=== PATIENT | male | born 1960 | race Caucasian/White ===

== ENCOUNTER 2020-03-31 00:46 | Outpatient (CLI) | payer OTHER, SELFPAY ==
[2020-03-31 18:47] LABS: SARS-CoV-2 RNA PCR Negative
== END 2020-03-31 00:47 | disposition home or self-care (01) ==
LOC: ANHCOVIDDT 00:47
PROVIDERS: PCP Family Medicine Adolescent Medicine; Visit Provider Internal Medicine Cardiovascular Disease
DX: Z01.812 Encounter for preprocedural laboratory examination (principal); Z20.822 Contact with and (suspected) exposure to COVID-19
CPT/HCPCS: C9803; U0003; U0005

== ENCOUNTER 2020-04-04 02:18 | Day surgery (SDC) | payer OTHER, SELFPAY ==
[2020-04-03 13:14] VITALS: BMI 36.9
[2020-04-04 07:33] VITALS: BP 154/86; PULSE 60; RESP 14; TEMP 36.3; O2SAT 100; BMI 36.9
[2020-04-04 07:48] LABS: Hematocrit 48.3 % (42.0-52.0); Mean Corpuscular HGB Conc 33.1 g/dl (32-36); Mean Corpuscular Volume 90.4 fl (80-100); Mean Platelet Volume 10.7 fl (7.4-10.4); Platelet Count Result 173 k/mm3 (150-375); Red Blood Count 5.34 M/mm3 (4.6-6.20); Red Cell Distribution Width 12.8 % (11.5-14.5); White Blood Count 8.1 K/mm3 (4.5-10.0)
[2020-04-04 07:55] LABS: INR 0.9; Prothrombin Time 12.2 Seconds (11.1-14.7)
[2020-04-04 07:57] LABS: Anion Gap 6 mmol/L (8-16); Blood Urea Nitrogen 19 mg/dL (9-20); Calcium 9.4 mg/dL (8.4-10.2); Carbon Dioxide 27 mmol/L (22-30); Chloride 106 mmol/L (98-107); Estimated CRCL calculation 86 ml/min; Estimated Glomerular Filt Rate > 60; Glucose 117 mg/dL (75-110); Potassium 4.2 mmol/L (3.4-5.0); Sodium 139 mmol/L (137-145)
--- NOTE | 2020-04-04 08:32 | PM.IMHP ---
H&P: HPI History of Present Illness Date/Time: 04/04/20 08:32 Chief Complaint: Pacemaker at DARIO Narrative: Escobar Vasquez is a 59 year old male with a history of Biotronik pacemaker in (done out of town) for sick sinus syndrome and paroxysmal atrial fibrillation whose pacemaker has reached DARIO. He is here for generator change. The patient is feeling well today with no fevers. He has been NPO. Pacemaker check in February showed that he had reached DARIO. He has an underlying rhythm, rate 40-50 beats per minute. His leads look good. No recent AFib has been noted. He also has a history of hypertension and PVCs. Review of Systems Constitutional: Constitutional: Denies body ache(s), Denies chills and Denies weakness Eyes: Eyes: Reports no additional eye complaints ENT: Denies epistaxis Cardiovascular: Cardiovascular: Denies chest pain, Denies pedal edema and Denies palpitations Respiratory: Respiratory: Denies cough and Denies dyspnea Gastrointestinal: Gastrointestinal: Denies abdominal pain Genitourinary: Genitourinary: Denies dysuria Musculoskeletal: Musculoskeletal: Reports no additional musculoskeletal complaints Integumentary/Breasts: Skin/Breast: Denies rash Neurologic: Reports system reviewed and no additional complaints, except as documented Psychiatric: Psychiatric: Reports no additional psychiatric complaints [facility] Past Medical History Medical History (Updated 04/04/20 @ 08:37 by Xochitl Be MD) Aortic insufficiency Hypertension Pacemaker Biotronik pacemaker placed in 2007 for sick sinus syndrome. 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 Smoking status: Never smoker Second hand tobacco smoke exposure: No Alcohol intake: current Drinks per week: 2 Substance use: never Living arrangements: with family Gender identity (if verbalized by the patient): Male Spiritual care concerns: No Meds Home Medications and Allergies Home Medications Medication Instructions Recorded Confirmed Type aspirin 325 mg PO DAILY 04/03/20 04/03/20 History flecainide 150 mg PO BID 04/03/20 04/03/20 History magnesium 250 mg PO DAILY 04/03/20 04/03/20 History metoprolol succinate 100 mg PO DAILY 04/03/20 04/03/20 History multivitamin [A To Z Multivitamin] 1 tablet PO DAILY 04/03/20 04/03/20 History simvastatin 20 mg PO DAILY 04/03/20 04/03/20 History Allergies Allergy/AdvReac Type Severity Reaction Status Date / Time propafenone Allergy Severe HIVES Verified 10/11/19 13:22 Vital Signs Vital Signs - 24 hr 04/04/20 07:33 Temperature 97.3 F L Pulse Rate 60 Respiratory Rate 14 Blood Pressure 154/86 H Pulse Oximetry 100 Exam Narrative: Exam Narrative: Pleasant middle-aged male in no distress Const: General: comfortable and no acute distress HENMT: General nose exam: no epistaxis Mouth: Yes moist mucous membranes Eyes: EOM: EOMs intact bilaterally Neck: Neck: supple Resp: Effort & Inspection: normal respiratory effort Auscultation: clear to auscultation bilaterally Cardio: Rate: regular rate Rhythm: regular rhythm Heart sounds: no murmurs GI: Inspection: non-distended GI Palp: Yes Soft to palpation, No Firmness to palpation present (GI) and No Tenderness to palpation present (GI) Skin: General skin exam: normal color Other: Pacemaker incision is well-healed Neuro: Cognition (Neuro): normal cognition Speech: normal speech Motor exam (neuro): Normal motor muscle tone present throughout Extrem: General: no edema Psych: Mental Status: mental status grossly normal Affect: normal affect H&P: Results Labs Labs: Short CBC 04/04/20 Range/Units 07:39 WBC 8.1 (4.5-10.0) K/mm3 Hgb 16.0 (14.0-18.0) g/dL Hct 48.3 (42.0-52.0) % Plt Count 173 (150-
--- NOTE | 2020-04-04 08:40 | P.SEDATION_ITS ---
Moderate Sedation Note-Pt Data Patient Data Diagnosis: Pacemaker at DARIO Present Complaint: Pacemaker at DARIO Procedure to be performed/Plan: Conscious sedation Generator change Allergies Allergy/AdvReac Type Severity Reaction Status Date / Time propafenone Allergy Severe HIVES Verified 10/11/19 13:22 Home Medications Medication Instructions Recorded Confirmed Type aspirin 325 mg PO DAILY 04/03/20 04/03/20 History flecainide 150 mg PO BID 04/03/20 04/03/20 History magnesium 250 mg PO DAILY 04/03/20 04/03/20 History metoprolol succinate 100 mg PO DAILY 04/03/20 04/03/20 History multivitamin [A To Z Multivitamin] 1 tablet PO DAILY 04/03/20 04/03/20 History simvastatin 20 mg PO DAILY 04/03/20 04/03/20 History Sedation/Anesthesia: No previous sedation/anesthesia problems (including family history). [facility] Past Medical History Medical History Aortic insufficiency Hypertension Pacemaker Biotronik pacemaker placed in 2007 for sick sinus syndrome. 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 Smoking status: Never smoker Second hand tobacco smoke exposure: No Alcohol intake: current Drinks per week: 2 Substance use: never Living arrangements: with family Gender identity (if verbalized by the patient): Male Spiritual care concerns: No Mod Sed Physical Exam Physical Exam Pre Procedural Exam: Normal: Appearance, Eyes, Ears, Nose, Neck, Throat, Airway, Lungs, Heart Size, Heart Rate, Heart Rhythm, Neuro Exam, Abdomen, Extremities and Skin (Pacemaker incision well-healed) Hours since solid foods: 12 Hours since liquid intake: 12 Internal Medicine - PN: Obj Da Vital Signs Vital Signs: Vital Signs - 24 hr 04/04/20 07:33 Temperature 97.3 F L Pulse Rate 60 Respiratory Rate 14 Blood Pressure 154/86 H Pulse Oximetry 100 Labs CBC & Chem 7: 04/04/20 07:39 04/04/20 07:39 Labs: Laboratory Results - last 24 hr 04/04/20 04/04/20 04/04/20 07:39 07:39 07:39 WBC 8.1 RBC 5.34 Hgb 16.0 Hct 48.3 MCV 90.4 MCH 30.0 MCHC 33.1 RDW 12.8 Plt Count 173 MPV 10.7 H PT 12.2 INR 0.9 Sodium 139 Potassium 4.2 Chloride 106 Carbon Dioxide 27 Anion Gap 6 L BUN 19 Creatinine 1.20 Estim Creat Clear Calc 86 Estimated GFR > 60 Glucose 117 H Calcium 9.4 ASA Classification/Sedation ASA Classification/Sedation ASA Class: II Risks: Risks, benefits and alternatives explained and patient/family accepted p cecy for sedation. Patient re-evaluated immediately prior to sedation.
--- NOTE | 2020-04-04 10:09 | P.OP_ITS ---
Procedure Note - Detailed Date of procedure: 04/04/20 Pre-op diagnosis: DARIO Post-op diagnosis: same Procedure performed: Conscious sedation Generator change Description of procedure: PROCEDURE: Conscious sedation Generator change, dual-chamber pacemaker UNDERLYING RHYTHM: Sinus bradycardia CONSCIOUS SEDATION: Assessment: The patient has no history of anesthesia problems. The oropharynx is clear. The patient was deemed to be a good candidate for conscious sedation. The patient had continuous hemodynamic and oximetric monitoring during the procedure. Start time: 911 Completion time: 100 Total conscious sedation time: 54 minutes Medications: Versed 4 mg, fentanyl 100 mcg IV push Trained observer: Katharine Del Toro RN Outcome: The patient tolerated the procedure well with no complications. PROCEDURE: After informed consent, the patient is brought to the dairy laboratory technician and the left prepectoral area was prepped and draped in usual fashion. The patient was given a prophylactic antibiotic with Ancef intravenously. After conscious sedation as described above, the area was anesthetized with 1% lidocaine. A skin incision is made with the Plasma Blade and carried down to the pacing capsule which was also incised. Hemostasis is obtained using the Plasma Blade. The lead/s was/were freed from the underlying capsule and inspected and were found to be intact. The pulse generator was delivered from the pocket. The lead/s was/were disconnected from the existing device and reconnected to the new device. A gentle tug could not remove it/them. The device and lead/s was/were interrogated and found to be functioning appropriately. The area was copiously irrigated with antibiotic-containing solution. The device was replaced in the pocket. The subcutaneous tissues were closed in a two-layer fashion with interrupted 2 0 Vicryl sutures and the skin was closed in a continuous fashion using 4 0 Vicryl. The area was cleansed, an Aquacel dressing applied. because the patient had some minor oozing, a pressure dressing was also applied. The patient tolerated the procedure well with no complications. Estimated blood loss was negligible. DEVICE INFORMATION: New pulse generator: Research for [employer] MRI DR Model L111, Serial # [id number] Existing right atrial lead: Guidant model 4480, serial# [id number] Existing right ventricular lead: Guidant model 4457, serial # [id number] Explanted generator: Guidant model 1291, serial [id number] THRESHOLD INFORMATION: Atrrial lead: P-wave sensing 3.7 mV, impedance 420 Ohms, threshold 0.4 volts at 0.4 milliseconds Ventricular lead: R-wave sensing 8.8 mV, impedance 452 Ohms, threshold 1.1 volts at 0.4 milliseconds PROGRAMMED PARAMETERS: DDDR 60/130 Reprogrammed to reduce ventricular pacing: PAVD 220/350 msec, AV search to 400msec SAVD 220/350 msec Surgeon: Xochitl Be MD
--- NOTE | 2020-04-04 10:12 | PM.OP ---
Procedure Note - Brief Procedure Note - Brief Date of procedure: 04/04/20 Pre-op diagnosis: DARIO Post-op diagnosis: same Procedure performed: conscious sedation Generator change Description of procedure: uneventful generator change of a [employer] dual-chamber pacemaker Implants: [employer] MRI DR Pacemaker Model L111, Serial number [id number] Anesthesia: local and other ( conscious sedation) Surgeon: Xochitl Be MD Drains: No Packing: No Pathology: none sent Complications: No immediate complications Condition: stable Disposition: same day Findings: unremarkable generator change
[2020-04-04 10:27] VITALS: BP 136/80; PULSE 60; RESP 14; O2SAT 95
[2020-04-04 10:45] VITALS: BP 133/83; PULSE 60; RESP 14; O2SAT 96
[2020-04-04 10:58] VITALS: BP 139/82; PULSE 60; RESP 14; O2SAT 97
[2020-04-04 11:15] VITALS: BP 139/73; PULSE 60; RESP 14; O2SAT 97
[2020-04-04 11:30] VITALS: BP 128/78; PULSE 60; RESP 14; O2SAT 97
--- NOTE | 2020-04-04 11:41 | SUR.PHASEII ---
ALL D/C INSTRUCTIONS REVIEWED WITH PATIENT, VERBALIZED UNDERSTANDING. NO QUESTIONS AT THIS TIME.
== END 2020-04-04 11:55 | disposition home or self-care (01) ==
PROVIDERS: PCP Family Medicine Adolescent Medicine; Visit Provider Internal Medicine Cardiovascular Disease
PROC: 0JPT0PZ Removal of Cardiac Rhythm Related Device from Trunk Subcutaneous Tissue and Fascia, Open Approach (ICD-10-PCS; CPT 33228; 2020-04-04 08:30)
DX: Z45.010 Encounter for checking and testing of cardiac pacemaker pulse generator [battery] (principal); I48.0 Paroxysmal atrial fibrillation; I10 Essential (primary) hypertension; I49.3 Ventricular premature depolarization; I35.1 Nonrheumatic aortic (valve) insufficiency; Z79.82 Long term (current) use of aspirin
CPT/HCPCS: 33228; 36415; 80048; 85027; 85610; C1785; C9803; J0690; J2250; J3010; J7040; U0003; U0005

== ENCOUNTER → 2022-08-29 14:17 | Outpatient (CLI) | payer OTHER, SELFPAY ==
--- NOTE | ~2022-08-29 | XR_ITS ---
XR hip LT min 2V 08/29/2022 14:32 Indication: Left hip pain Procedure: 2 views left hip Comparison: No prior studies for comparison. Findings: There is moderate osteoarthritis of the left hip. No fracture, subluxation or dislocation. No soft tissue abnormality. No foreign bodies. Impression: 1: Moderate osteoarthritis of the left hip. Reviewed, dictated and finalized at location [] Impression: 1: Moderate osteoarthritis of the left hip.
== END ==
PROVIDERS: PCP Family Medicine Adolescent Medicine; Visit Provider Family Medicine Adolescent Medicine
DX: M16.12 Unilateral primary osteoarthritis, left hip (principal)
CPT/HCPCS: 73502

== ENCOUNTER 2023-01-22 09:52 | Outpatient (CLI) | payer OTHER, SELFPAY ==
[2023-01-22 11:46] LABS: Basophils Absolute Auto 0.1 K/mm3 (0.0-0.1); Basophils Percent Auto 0.7 % (0.2-1.2); Eosinophils Absolute Auto 0.2 K/mm3 (0-0.3); Eosinophils Percent Auto 2.8 % (0-4.4); Hemoglobin 15.4 g/dL (14.0-18.0); Immature Granulocyte Absolute 0.03 K/mm3 (0.00-0.031); Immature Granulocyte Percent A 0.4 % (0-0.5); Lymphocytes Absolute Auto 2.67 K/mm3 (0.9-3.2); Lymphocytes Percent Auto 32.8 % (18.3-44.2); Mean Corpuscular HGB Conc 32.8 g/dl (32-36); Mean Corpuscular Hemoglobin 30.1 pg (26-34); Mean Corpuscular Volume 91.8 fl (80-100); Mean Platelet Volume 10.7 fl (7.4-10.4); Monocytes Absolute Auto 0.6 K/mm3 (0.1-0.6); Monocytes Percent Auto 7.5 % (2.6-8.5); Neutrophils Absolute Auto 4.6 K/mm3 (1.3-6.7); Neutrophils Percent Auto 55.8 % (45.5-73.1); Platelet Count Result 206 k/mm3 (150-375); Red Blood Count 5.12 M/mm3 (4.6-6.20); Red Cell Distribution Width 12.7 % (11.5-14.5); White Blood Count 8.2 K/mm3 (4.5-10.0)
[2023-01-22 11:55] LABS: Albumin Level 4.9 g/dL (3.5-5.1); Anion Gap 10 mmol/L (8-16); Blood Urea Nitrogen 26 mg/dL (9-20); Calcium 9.9 mg/dL (8.4-10.2); Carbon Dioxide 27 mmol/L (22-30); Chloride 104 mmol/L (98-107); Estimated Glomerular Filt Rate 51; Glucose 89 mg/dL (65-110); Hemoglobin A1C 5.5 % (<5.7); Potassium 4.8 mmol/L (3.4-5.0); Sodium 141 mmol/L (137-145)
[2023-01-22 11:58] LABS: Urine Cotinine NEGATIVE
== END 2023-01-22 09:53 | disposition home or self-care (01) ==
LOC: ANHSURGERY 09:56
PROVIDERS: PCP Family Medicine Adolescent Medicine; Visit Provider Orthopaedic Surgery
DX: M16.12 Unilateral primary osteoarthritis, left hip (principal); Z01.818 Encounter for other preprocedural examination
CPT/HCPCS: 80048; 80307; 82040; 83036; 85025; 87081

== ENCOUNTER 2023-02-18 01:01 | Day surgery (SDC) | payer OTHER, SELFPAY ==
[2023-01-22 10:01] VITALS: BMI 34.0
--- NOTE | 2023-01-22 10:28 | PC.NURSE ---
Report to the Outpatient Waiting Room, entrance under the green pavilion located off [facility], at time _0600 on date _02/18/23 . Planned Procedure Time: ___30 . Time changes happen often and if your time is changed the preop area will call you the afternoon before. - You and your visitor will be asked to self-screen and do not enter if you have any COVID symptoms. - A mask is optional within the hospital at this time. Patients may have clear liquids (water, carbonated beverages, clear teas, apple juice) until 3 hours prior to surgery with a maximum of 20 ounces. - No food from midnight until time of surgery - Infants may have breast milk until 4 hours before surgery, infant formula 6 hours prior to surgery. - Children will be allowed to drink immediately following surgery. If applicable, please bring a bottle or sippy cup to assist with drinking. Juice, water, soda, and popsicles are readily available. For infants on formula, please bring formula the day of surgery. Pacifiers are allowed. Take the following medications with a SIP of water the morning of surgery: __FLECAINIDE,METOPROLOL DO NOT STOP ANY OF YOUR OTHER PRESCRIPTION MEDICATIONS PRIOR TO SURGERY ?EXCEPT THE FOLLOWING Medications to discontinue per physician __PATIENT STATES DECREASE ASPIRIN TO 81 MG 7 DAYS PRIOR TO SURGERY.HOLD DICLOFENAC 7 DAYS PRE OP LAST DOSE 02/10/23 .ALL VITAMINS AND SUPPLEMENTS 3 DAYS PRE OP.LAST DOSE 02/14/23 Please no make-up, nail italian, hairspray, perfume, deodorant, or body powder the day of surgery. No jewelry (including any body piercings) or valuables the day of surgery, leave them at home. Please take a shower or bath the night before, or the morning of, surgery with an antibacterial soap. Wear comfortable, loose fitting clothing. Children are encouraged to wear pajamas. - Jewelry must be removed prior to entering the operating room. Rings and piercings that are not removed may be cut off. - The hospital will not accept responsibility for valuables. - Please leave all valuables, including medications, at home the day of surgery. If you are going home after surgery, a licensed warehouse delivery driver must drive you home. - NO public transportation without another adult if you receive anesthesia. - We recommend that an adult stay with you for 24 hours following discharge. - We also recommend that you do not drive, make important decision, drink alcoholic beverages, or take any drugs that were not prescribed by your health care provider for at least 24 hours after your discharge time. For Pediatric surgeries, we recommend two adults accompany the child home. Follow any additional instructions given to you from your surgeon. If you or anyone in your household have experienced Covid symptoms in the past week, please notify your surgeon or the nurse liaison at the phone number below for possible testing. VERBAL AND WRITTEN instructions given to _PATIENT AND MOON and asked if any additional questions and then verbalized understanding. Patient advised to call surgeon office or pre surgery nurse liaison [phone] if any additional questions.
[2023-01-22 10:52] VITALS: BP 129/78; PULSE 60; RESP 18; TEMP 36.6; O2SAT 98
--- NOTE | 2023-02-13 08:54 | PM.IMHP ---
H&P: HPI History of Present Illness Date/Time: 02/13/23 08:54 Chief Complaint: Left hip DJD Narrative: 62-year-old male patient of Dr. Santillan who presents today for left anterior total hip arthroplasty. He has been having worsening symptoms in the left hip over the course of last 5-6 months. Earlier this year he had x-rays which showed moderate to moderately severe arthritis of the hip. His symptoms have progressively worsened over last several months. New x-rays at this point show that he is now [id number] in the superior aspect of the left hip. He is having rather severe symptoms on a daily basis. Most the pain is in the groin and the anterior thigh with weight-bearing. He has been walking with crutches recently due to the rather severe pain he is having in the hip. Patient has been taking diclofenac 75 mg b.i.d. without improvement of his symptoms. At this point he feels he is ready proceed with total hip arthroplasty. Review of Systems Review of Systems: All systems reviewed & are unremarkable except as noted in HPI and below PMFSH Past Medical History Medical History (Updated 11/27/22 @ 09:38 by Cal Luis MD) Aortic insufficiency Arthritis of left hip Hypertension Pacemaker Biotronik pacemaker placed in 2007 for sick sinus syndrome. 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 Smoking status: Never smoker Second hand tobacco smoke exposure: No Additional smoking assessment comments: DENIES ANY FORM OF TOBACCO USE Alcohol intake: current Drinks per week: 2 Substance use: never Substance use type: does not use Lack of Transportation: No Lack of Food: Never True Current Housing: I Have Housing Concerned About Future Housing: No Difficulty Paying Gas/Electric Bills: No Difficulty Paying for Meds: No Currently Unemployed: No Education: Master's Degree or Higher Difficulty w/ Childcare or Family Care: No Living arrangements: with family Occupation/Education: retired Gender identity (if verbalized by the patient): Male Sexual Orientation (if Verbalized by the Patient): Straight or Heterosexual Spiritual care concerns: No Agree to blood products: Yes Meds Home Medications and Allergies Home Medications Medication Instructions Recorded Confirmed Type aspirin 325 mg tablet 325 mg PO DAILY 04/03/20 01/22/23 History flecainide 100 mg tablet 150 mg PO BID 04/03/20 01/22/23 History magnesium 250 mg tablet 250 mg PO DAILY 04/03/20 01/22/23 History metoprolol succinate 100 mg 100 mg PO DAILY 04/03/20 01/22/23 History tablet,extended release 24 hr multivitamin 1 tablet PO DAILY 04/03/20 01/22/23 History valsartan 160 mg tablet 160 mg PO DAILY 08/20/21 01/22/23 History diclofenac sodium 75 mg 75 mg PO BID PRN pain #60 tabs 08/19/22 01/22/23 Rx tablet,delayed release sildenafil 25 mg tablet (Viagra) 25 mg PO DAILY PRN Erectile 10/15/22 01/22/23 History Dysfunction simvastatin 20 mg tablet 20 mg PO DAILY #30 tabs 01/22/23 Rx Allergies Allergy/AdvReac Type Severity Reaction Status Date / Time propafenone Allergy Severe HIVES/throat Verified 01/22/23 10:03 swelling Exam Narrative: 62-year-old male alert pleasant. He is 6 ft 3 and 276 lb his BMI is 34.5. His left hip flexes to 120 internally rotates to 20
--- NOTE | 2023-02-17 14:30 | WPDANESEPPF ---
Anes - Initial Pre Proc Eval Procedure: Operation Date: 02/18/23 07:30 Proposed Procedures p Left Total Hip Arthroplasty Anterior Approach - Say Rogel MD Date/Time: 02/17/23 14:30 Surgeon: Say Rogel MD Pre Op Diagnosis: left hip oa Patient Data Age: 62 Gender: M Height: 1.91 m Weight: 123.5 kg Last Vital Signs Temp 97.8 F 01/22/23 10:52 Pulse 60 01/22/23 10:52 Resp 18 01/22/23 10:52 BP 129/78 01/22/23 10:52 Pulse Ox 98 01/22/23 10:52 O2 Del Method Room Air 01/22/23 10:52 Allergies Allergy/AdvReac Type Severity Reaction Status Date / Time propafenone Allergy Severe HIVES/throat Verified 01/22/23 10:03 swelling Home Medications Medication Instructions Recorded Confirmed Type aspirin 325 mg tablet 325 mg PO DAILY 04/03/20 02/18/23 History flecainide 100 mg tablet 150 mg PO BID 04/03/20 02/18/23 History magnesium 250 mg tablet 250 mg PO DAILY 04/03/20 02/18/23 History metoprolol succinate 100 mg 100 mg PO DAILY 04/03/20 02/18/23 History tablet,extended release 24 hr multivitamin 1 tablet PO DAILY 04/03/20 02/18/23 History valsartan 160 mg tablet 160 mg PO DAILY 08/20/21 02/18/23 History diclofenac sodium 75 mg 75 mg PO BID PRN pain #60 tabs 08/19/22 02/18/23 Rx tablet,delayed release sildenafil 25 mg tablet (Viagra) 25 mg PO DAILY PRN Erectile 10/15/22 01/22/23 History Dysfunction simvastatin 20 mg tablet 20 mg PO DAILY #30 tabs 01/22/23 02/18/23 Rx Patient hx anesthesia problems: none Family hx anesthesia problems: none Results Review: All pre-operative results and documents have been reviewed as part of the pre-operative evaluation. [facility] Past Medical History Medical History (Updated 11/27/22 @ 09:38 by Cal Luis MD) Aortic insufficiency Arthritis of left hip Hypertension Pacemaker Biotronik pacemaker placed in 2007 for sick sinus syndrome. 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 Smoking status: Never smoker Second hand tobacco smoke exposure: No Additional smoking assessment comments: DENIES ANY FORM OF TOBACCO USE Alcohol intake: current Drinks per week: 2 Substance use: never Substance use type: does not use Lack of Transportation: No Lack of Food: Never True Current Housing: I Have Housing Concerned About Future Housing: No Difficulty Paying Gas/Electric Bills: No Difficulty Paying for Meds: No Currently Unemployed: No Education: Master's Degree or Higher Difficulty w/ Childcare or Family Care: No Living arrangements: with family Occupation/Education: retired Gender identity (if verbalized by the patient): Male Sexual Orientation (if Verbalized by the Patient): Straight or Heterosexual Spiritual care concerns: No Agree to blood products: Yes Anes - Eval Final PreProcedure Day of Procedure 02/17/23 14:30 Patient weight: obese Heart: regular rate and rhythm Lungs: clear to auscultation Airway: Mallampati scale class II Neurological: alert and oriented Last oral intake: >/= 8 hours ASA classification: III Emergent: no Anesthetic plan: proceed Anesthesia type and monitoring: general ETT and standard monitoring Results Review: All pre-operative results and documents have been reviewed as part of the pre-operative evaluation. Informed C
[2023-02-18] VITALS (15 sets, daily range): BP systolic 121–145; BP diastolic 56–77; PULSE 59–67; RESP 14–20; TEMP 36.3–36.8; O2SAT 97–100
--- NOTE | ~2023-02-18 | XR_ITS ---
EXAMINATION: XR hip LT 1V w AP pelvis DATE: 02/18/2023 11:53 INDICATION: Postoperative evaluation following left total hip arthroplasty TECHNIQUE: Anteroposterior and lateral views of the left hip were obtained. COMPARISON: 08/29/2022 FINDINGS: Interval placement of a noncemented left total hip arthroplasty which appears well seated in near yuan tomic alignment. Acetabular component is affixed with a single screw . Surgical drain and expected fuentes bcutaneous gas in the postoperative bed. Right hip joint space appears relatively preserved. No fract ures identified. IMPRESSION: 1. Left total hip arthroplasty, negative for postoperative purposes. Reviewed, dictated and finalized at location A. IDE SALES INSPECTOR
--- NOTE | ~2023-02-18 | XR_ITS ---
EXAMINATION: XR surgery orthopedic DATE: 02/18/2023 11:31 INDICATION: Left complete hip arthroplasty TECHNIQUE: Single fluoroscopic image was left hip. 59 seconds of fluoroscopy. FINDINGS: There is a left total hip arthroplasty in expected position. Subcutaneous gas with soft ti ssue swelling are consistent with recent surgery. IMPRESSION: 1. Recent left total hip arthroplasty. Reviewed, dictated and finalized at location B. NCIAL SYSTEMS ANALYST
[2023-02-18] MEDS: ACETAMINOPHEN 500 MG TABLET 1000 MG PO ×3 (06:50→20:29)
[2023-02-18] MEDS: LACTATED RINGERS 1,000 ML 30 ML IV CONT ×2 (06:55→11:53)
[2023-02-18] MEDS: TRANEXAMIC ACID 1,000MG/ISO100 1,000 MG/100 ML BAG 200 MG IVPB (07:09)
[2023-02-18] MEDS: ceFAZolin 3 GM/D5W 100 ML 100 ML IVPB (07:26)
--- NOTE | 2023-02-18 07:28 | WPDHPUPDATE1 ---
History and Physical Update Update Date/Time: 02/18/23 07:28 History and Physical has been reviewed, including an updated exam of the patient. There are NO changes in the patient's condition. Risks, benefits, and alternatives have been discussed and questions answered. Patient agrees to proceed with procedure.
[2023-02-18] MEDS: ceFAZolin SODIUM 1 GM VIAL 3 GM (08:10)
[2023-02-18] MEDS: ceFAZolin SODIUM 1 GM VIAL 2 GM IV PUSH (11:08)
[2023-02-18] MEDS: TRANEXAMIC ACID 1,000 MG/10 ML AMPUL 1000 MG IV PUSH (11:08)
--- NOTE | 2023-02-18 11:54 | W.PM.PROC2 ---
Procedure Note - Detailed Date of Procedure 02/18/23 Pre-op Diagnosis left hip oa,obesity Post-op Diagnosis Same Procedure Performed Direct anterior approach left total hip arthroplasty Surgeon Say Rogel MD Mechanical Engineering Officer Maddie Anesthesia General Description of Procedure Patient was brought to the operating room and general anesthesia was administered. He received 3 g of Ancef weight based vancomycin and 1 g of tranexamic acid preoperatively. There is extra difficulty with the procedure due to BMI of 35 which added approximately 1 hour of operative time. The feet were padded boots applied patient transferred to the [facility] table SCDs applied the legs and running during the procedure. The left hip prepped draped usual fashion. A 10 cm longitudinal incision was made starting 3 cm lateral to the ASIS. The incision had to be lengthened about a cm half in each direction as the procedure progressed when we could see we needed the extra exposure. His skin was not mobile. Dissection was carried down to the fascia of the tensor fascia harley which was longitudinally incised elevated off the anterior 50% of the tensor fascia harley muscle. Interval between tensor fascia harley and rectus femoris developed. Crossing branches of ascending lateral femoral circumflex vessels were ligated with suture divided. A retractor was placed anteromedial capsule. The hip abducted internally rotated and the gluteus minimus elevated off the lateral capsule. Standard inverted T capsulotomy was performed. Femoral neck osteotomy made according to preoperative templating. The hip was very tight and we elected to remove the femoral head partly in a piecemeal fashion to make it smaller for easier safe extraction. The labrum was excised residual cartilage curetted. The leg was externally rotated and extended. The tip of the posterior capsular flap was excised for exposure and the interval between conjoined tendon and piriformis incised which allowed the piriformis to flipped and a little bit of recession on the conjoined tendon. With the leg back in the horizontal position the acetabulum was again exposed and prepared under fluoroscopic guidance. We medialized with the 44 Reamer and reamed up to 53 which gave a circumferential contact trial shell with a tight fit. We lightly reamed with the 54 and impacted the 54 pinnacle cup at 40? of abduction and approximately 15 - 20? of anteversion. This left posterior aspect of the cup flush with the posterior rim and the anterior about 4 mm under the anterior acetabular osteophyte which was subsequently reduced. An excellent Press-Fit was achieved. A single screw placed in the ilium and the 36 inner diameter liner seated without difficulty. Leg was externally rotated extended. Initially I had the table hook in place but it seemed to restrict exposure due to the pole of very large tensor fascia harley muscle laterally which decreased stability proximally. We used the George for retraction of the tensor fascia harley and this gave us adequate exposure. Femur was prepared broached up to a size 7. I we had appropriate leg lengths but was just a tiny bit looser than optimal with the -2 and a little bit tight with a 1.5. We calcar planed and noted that the broach had a little bit of wiggle on torsional stress and we were able to fully seat a size 8 broach which gave a solid fit with no play on torsional stress. On trialing with a-2 we had appropriate soft tissue tension equal leg lengths and offset under imaging. We finish the calcar planing and seated the size 8 high offset Actis stem fully. There were no cracks in the bone. We trialed with the -2 again and we had appropriate soft tissue tension and stability. The real global chromium -2 head was impacted onto the clean and dried trunnion after irrigation of the wound with antibiotic solution. The hip was reduced stability soft tissue tension reconfirmed. The arthrotomy was closed with 2. V
--- NOTE | 2023-02-18 12:03 | PM.OP ---
Procedure Note - Brief Procedure Note - Brief Date of procedure: 02/18/23 left hip oa Procedure performed: Left anterior total hip arthroplasty Surgeon: JOHNNY Sanchez Findings: 62-year-old male who underwent left anterior total hip arthroplasty on 02/18. I was involved in the procedure including positioning the patient on the OR table in 1st assisting through the time surgery. Total time spent was 4 hours
[2023-02-18] MEDS: fentaNYL CITRATE INJ (*CRX) 100 MCG/2 ML VIAL 25 MCG IV PUSH ×2 (12:17→12:21)
[2023-02-18 12:56] LABS: Glucose Point of Care 148 mg/dl (65-105)
--- NOTE | 2023-02-18 13:20 | ADMGEN ---
This patient, Escobar Vasquez, was admitted to Medical Room 342-01. Patient/family oriented to hospital policies and general routines including ID bracelet, bed and alarms, visiting hours, pain management, procedures, bathroom and other care routines, personal items, smoking policy, room service/diet, and visiting hours. Information on how to activate the Rapid Response Team has been discussed. Patient/Family are encouraged to report perceived risks to care and to ask questions if they do not understand what they are told or what they should do.
[2023-02-18] MEDS: oxyCODONE HCL (*CRX) 5 MG TAB IR PO ×3 (13:43→22:56)
[2023-02-18] MEDS: SODIUM CHLORIDE 0.9% IV 1,000 ML 125 ML IV CONT ×2 (13:43→22:57)
[2023-02-18] MEDS: SENNA/DOCUSATE SODIUM TABLET 2 TAB PO (16:15)
[2023-02-18] MEDS: ceFAZolin 1 GM/NS 50 ML 1 GM/50 ML BAG IVPB ×2 (16:15→22:56)
[2023-02-18] MEDS: KETOROLAC 15 MG/ML VIAL (*BKC) IV PUSH ×2 (17:21→22:56)
[2023-02-18] MEDS: FLECAINIDE ACETATE 50 MG TABLET 150 MG PO (17:23)
[2023-02-18] MEDS: VANCOMYCIN 1,000 MG/NS 250 ML 1,000 MG/250 ML BAG 250 MG IVPB (18:31)
[2023-02-18] MEDS: FAMOTIDINE 20 MG TABLET PO (20:29)
--- NOTE | 2023-02-18 21:43 | PM.IMCN ---
Assessment and Plan Assessment and plan (1) Left hip pain: Code(s): M25.552 - Pain in left hip Status: Acute Assessment and Plan: s/p L total hip arthroplasty on 02/18. Ambulate with assistance and up to chair cardiac monitoring Q4H closed drain in place - management BID hip precautions in place use IS neurovasc checks - see order for intervals SCDs resume diet pain management monitor labs in AM - CBC and CMP bowel regimen: docusate/senna, polyethylene glycol Hold diclofenac, sildenafil, aspirin. (2) Acute urinary retention: Code(s): R33.8 - Other retention of urine Status: Acute Assessment and Plan: no urine output since Miller d/c'd. patient did not report any suprapubic pain or lower abdominal discomfort. patient bladder scanned which showed 700+ mL. Miller placed with 1000+ mL output. No previous hx of retention. Denies nocturia, urinary frequency, or difficulty urinating. Did report reduction in UO prior to surgery. Will start tamsulosin for post-operative urinary retention and recommend follow-up in 1 to 3 days for voiding trial. continue to monitor renal function and I&Os. (3) Essential (primary) hypertension: Code(s): I10 - Essential (primary) hypertension Status: Acute Assessment and Plan: Continue and monitor blood pressure. (4) Pure hypercholesterolemia, unspecified: Code(s): E78.00 - Pure hypercholesterolemia, unspecified Status: Acute Assessment and Plan: Continue simvastatin. (5) Paroxysmal atrial fibrillation: Code(s): I48.0 - Paroxysmal atrial fibrillation Status: Acute Assessment and Plan: Continue home flecainide and metoprolol. Continue tele monitoring. Plan Home Meds/Chronic Conditions -supplements: Hold multivitamin and magnesium supplement. Diet: Regular GI Prophylaxis: Not currently indicated DVT Prophylaxis: SCDs, continue Eliquis on 02/19 Lines: pIV Code Status: Full Code HPI Date of Consult Consult date: 02/19/23 Requesting Physician: Say Rogel MD Primary Care Provider: Onel Azul MD Consult Narrative Reason for consult: Medical Managment Narrative: Escobar Vasquez is a 62 year old male who presented here for surgical managment of L hip degnerative changes. Patient presented to [facility] for left anterior total hip arthroplasty, performed on 02/18. Patient had reported worsening pain over the last 5-6 months. Initial imaging showed moderate to moderately severe arthritis the hip. Repeat imaging was performed (MRI) which showed [id number] in the superior aspect of the left hip. Due to pain, patient reported restriction in mobility and increased use of assistive devices (cane, crutches etc.). Started on oral diclofenac without resolution of symptoms. This was discontinued 1 week prior to surgery, patient reported that it had been helping more than he thought. Not currently reporting any postoperative nausea, vomiting, or pain. Does report that he has been to urinate since Miller was discontinued operation. Otherwise no complaints. Review of Systems Review of Systems: All systems reviewed & are unremarkable except as noted in HPI and below PMFSH Past Medical History Medical History Aortic insufficiency Arthritis of left hip Hypertension Pacemaker Biotronik pacemaker placed in 2007 for sick sinus syndrome. Generator change 03/2020 Paroxysmal atrial fibrillation PVCs (premature ventricular contractions) Surgical History Surgical History History of cardiac cath 2007 History of permanent cardiac pacemaker placement 2008 History of tonsillectomy and adenoidectomy History of total left hip arthroplasty (02/2023) Family History Family History Father Skin
[2023-02-19] VITALS (9 sets, daily range): BP systolic 112–140; BP diastolic 49–62; PULSE 60–66; RESP 18; TEMP 36.6–37; O2SAT 97
[2023-02-19] MEDS: ACETAMINOPHEN 500 MG TABLET 1000 MG PO ×3 (01:40→14:25)
[2023-02-19] MEDS: oxyCODONE HCL (*CRX) 5 MG TAB IR PO ×4 (01:40→14:25)
[2023-02-19 05:56] LABS: Basophils Percent Auto 0.3 % (0.2-1.2); Eosinophils Percent Auto 0.1 % (0-4.4); Hematocrit 31.9 % (42.0-52.0); Hemoglobin 10.4 g/dL (14.0-18.0); Immature Granulocyte Absolute 0.05 K/mm3 (0.00-0.031); Immature Granulocyte Percent A 0.5 % (0-0.5); Lymphocytes Absolute Auto 1.67 K/mm3 (0.9-3.2); Lymphocytes Percent Auto 15.5 % (18.3-44.2); Mean Corpuscular HGB Conc 32.6 g/dl (32-36); Mean Corpuscular Hemoglobin 30.5 pg (26-34); Mean Corpuscular Volume 93.5 fl (80-100); Mean Platelet Volume 10.8 fl (7.4-10.4); Monocytes Percent Auto 9.1 % (2.6-8.5); Neutrophils Percent Auto 74.5 % (45.5-73.1); Platelet Count Result 128 k/mm3 (150-375); Red Blood Count 3.41 M/mm3 (4.6-6.20); White Blood Count 10.8 K/mm3 (4.5-10.0)
[2023-02-19 06:10] LABS: Anion Gap 7 mmol/L (8-16); Blood Urea Nitrogen 19 mg/dL (9-20); Carbon Dioxide 22 mmol/L (22-30); Chloride 106 mmol/L (98-107); Estimated CRCL calculation 80 ml/min; Estimated Glomerular Filt Rate > 60; Glucose 132 mg/dL (65-110); Sodium 135 mmol/L (137-145)
[2023-02-19] MEDS: VANCOMYCIN 1,000 MG/NS 250 ML 1,000 MG/250 ML BAG 250 MG IVPB (06:29)
[2023-02-19] MEDS: APIXABAN 2.5 MG TABLET PO (08:39)
[2023-02-19] MEDS: FAMOTIDINE 20 MG TABLET PO (08:39)
[2023-02-19] MEDS: VALSARTAN 160 MG TABLET PO (08:39)
[2023-02-19] MEDS: SENNA/DOCUSATE SODIUM TABLET 2 TAB PO (08:39)
[2023-02-19] MEDS: polyethylene glycoL 3350 17 GM POWD.PACK PO (08:39)
[2023-02-19] MEDS: CELECOXIB 200 MG CAPSULE PO (08:39)
[2023-02-19] MEDS: ASPIRIN 81 MG CHEWABLE TABLET PO (08:39)
[2023-02-19] MEDS: SIMVASTATIN 20 MG TABLET PO (08:39)
[2023-02-19] MEDS: FLECAINIDE ACETATE 50 MG TABLET 150 MG PO (08:40)
[2023-02-19] MEDS: TAMSULOSIN HCL 0.4 MG CAPSULE PO (08:40)
[2023-02-19] MEDS: ceFAZolin 1 GM/NS 50 ML 1 GM/50 ML BAG IVPB (08:41)
[2023-02-19] MEDS: METOPROLOL SUCCINATE EXT REL 100 MG TABCR PO (08:41)
[2023-02-19 08:42] LABS: Vitamin D 25 Hydroxy 20.1 ng/mL
[2023-02-19] MEDS: CEFDINIR 300 MG CAPSULE PO (10:01)
--- NOTE | 2023-02-19 10:55 | PM.PNORT ---
Progress Note: A&P Assessment and Plan (1) History of left hip replacement: Code(s): Z96.642 - Presence of left artificial hip joint Status: Acute Plan see above postop instructions in the HPI portion of this note. The patient voiced understanding agrees with the above plan. He will be discharged to home in stable condition as long as he can urinate and empty his bladder today after the Miller has been removed. The patient will call for any further problems difficulties or questions see discharge orders and discharge instructions. Subjective Subjective Date/Time Seen: 02/19/23 10:55 Interval history: the patient is doing well postop day 1 status post left total hip arthroplasty. He did have some issues with voiding overnight a Miller had to be placed. Patient had 700 cc upon placement of the Miller. Otherwise pain is fairly well controlled no other complaints. If after the Miller is removed today and he still has trouble voiding urology will be consulted. If he is doing well he can go home today. The surgeon noted that the patient's bones were a little soft for his age and a vitamin-D level is pending. Should [place] come [place] [address] units weekly for 8 weeks. He will continue with calcium and vitamin D also. Today at bedside the patient was instructed in postoperative hip care he was instructed to be on his back with his leg elevated above his heart will use a walker for 1 month as well. He will resume his full strength aspirin after the Eliquis is complete. Resume other home medications we talked about the fact he can change dressing daily shower and then reapply a new tube gauze dressing with tape. He should be up walking every hour he was advised not to rest in a chair or let his leg hang down to avoid swelling patient voiced understanding agrees with above plan he is ready for discharge to home today As long as he can urinate and does not need any further workup by urology. Review of Systems Review of Systems: Ten point review of systems otherwise negative Exam Narrative: vital signs stable afebrile neurovascularly patient is intact wound clean and dry calves benign tolerating p.o. well. Alert oriented x3. Normal mood and affect. No acute distress. Objective Data Vital Signs Vital Signs: Vital Signs - 24 hr 02/18/23 11:53 02/18/23 12:20 02/18/23 12:35 Temperature 36.3 C L Pulse Rate 60 60 60 Respiratory Rate 16 16 14 Blood Pressure 138/68 121/70 121/56 L Pulse Oximetry 100 100 100 Oxygen Delivery Simple Face Mask Simple Face Mask Room Air Oxygen Flow Rate 6 6 02/18/23 12:50 02/18/23 12:05 02/18/23 13:22 Temperature 36.3 C L 36.6 C Pulse Rate 60 60 60 Respiratory Rate 14 16 14 Blood Pressure 140/77 133/70 145/67 H Pulse Oximetry 97 100 100 Oxygen Delivery Room Air Simple Face Mask Oxygen Flow Rate 6 02/18/23 13:20 02/18/23 14:25 02/18/23 14:17 Temperature Pulse Rate 64 Respiratory Rate Blood Pressure Pulse Oximetry Oxygen Delivery Room Air Room Air Oxygen Flow Rate 02/18/23 13:35 02/18/23 14:05 02/18/23 16:05 Temperature 36.6 C 36.4 C Pulse Rate 67 67 60 Respiratory Rate 14 16 Blood Pressure 130/64 139/62 Pulse Oximetry 100 100 Oxygen Delivery Oxygen Flow Rate 02/18/23 17:23 02/18/23 18:39 02/18/23 22:05 Temperature 36.8 C 36.8 C Pulse Rate 64 65 61 Respiratory Rate 18 18 Blood Pressure 138/75 138/75 Pulse Oximetry 99 97 Oxygen Delivery Oxygen Flow Rate 02/18/23 20:00 02/19/23 02:39 02/19/23 00:00 Temperature 36.6 C Pulse Rate 63 60 66 Respiratory Rate 18 Blood Pressure 135/62 Pulse Oximetry 97 Oxygen Delivery Oxygen Flow Rate 02/19/23 04:00 02/19/23 06:39 02/19/23 08:40 Temperature 37.0 C Pulse Rate 60 60 60 Respiratory Rate 18 Blood Pressure 140/49 L Pulse Oximetry 97 Oxygen Delivery Oxygen Flow Rate 02/19/23 08:41 Temperature
--- NOTE | 2023-02-19 11:29 | PM.DS ---
DS: Admitting Diagnosis Discharge Date February 19, 2023 Admitting Diagnosis admitting diagnosis advanced primary osteoarthritis left hip joint discharge diagnosis same status post left total hip arthroplasty. DS: Summary Hospital Course Hospital Course: The patient was admitted after a left total hip arthroplasty for observation and pain control on February 18, 2023. Overnight the patient was having trouble urinating Miller was placed 700 cc of residual urine was obtained. Miller was removed the next morning to see if the patient could urinate. As long as he does well he will be discharged to home if he has issues with retained urine and or difficulty with urination urology will see the patient for further evaluation. Otherwise the patient was feeling well vital signs were stable he was afebrile neurovascularly was intact wound was clean and dry calves are benign alert oriented x3. Normal mood and affect. Tolerating p.o. well. Up ambulating with a walker. At bedside today all instructions were reviewed with the patient including the fact that he must use a walker for 1 month he is instructed to pump his legs up and down every hour while awake be up walking every hour while awake he is not to sit in a chair let his leg hang for more than 30 minutes at a time he can sit in the chair to eat or use the restroom otherwise he should be on his back with his leg elevated above his heart. If he starts to develop significant swelling or problems he will call the office immediately and then go to the hospital for a venous duplex scan. Dressing will be changed daily with 4 x 4 gauze and a small amount of tape the patient may shower between dressing changes. The patient will be continued on his baby aspirin as well as Eliquis for 5 weeks once this is done he will resume aspirin 325 mg daily for his home routine. He will resume other home medications in addition to this he will be on Celebrex for 10 days oxycodone 5 mg a scheduled basis every 4 hours along with Tylenol 1000 mg every 6 hours for pain control. He will be on Omnicef 300 mg b.i.d. x1 week MiraLax powder and Senokot tablets daily to avoid constipation. A vitamin D level is pending if this is low abnormal the patient will be started on vitamin-D 20277 units weekly for 8 weeks. The patient is to be discharged home if he is able to void without urinary problems he was also discharged with tamulosin instructed to follow-up with the urologist if necessary. patient is to be discharged home in good condition follow-up at [address] Hernandez for wound check and recheck. The patient voiced understanding and agrees with above plan. Time Spent with Patient Time attestation: Total time spent providing and/or coordinating discharge services: Exam Narrative: Vital signs stable afebrile neurovascular intact wound clean and dry calves benign alert oriented x3. Normal mood and affect. Pain well controlled tolerating p.o. well. DS: Data Data Completed and Pending Labs on day of discharge: Labs from last 24 hours 02/19/23 02/18/23 05:17 12:21 WBC 10.8 H RBC 3.41 L Hgb 10.4 L D Hct 31.9 L MCV 93.5 MCH 30.5 MCHC 32.6 RDW 13.0 Plt Count 128 L MPV 10.8 H Immature Gran % (Auto) 0.5 Neut % (Auto) 74.5 H Lymph % (Auto) 15.5 L Gove % (Auto) 9.1 H Eos % (Auto) 0.1 Baso % (Auto) 0.3 Lymph # (Auto) 1.67 Gove # (Auto) 1.0 H Eos # (Auto) 0.0 Baso # (Auto) 0.0 Abs Immat Gran (auto) 0.05 H Absolute Neuts (auto) 8.0 H Absolute Nucleated RBC 0.0 Nucleated RBC % 0.0 Sodium 135 L Potassium 4.0 Chloride 106 Carbon Dioxide 22 Anion Gap 7 L BUN 19 Creatinine 1.20 Estim Creat Clear Calc 80 Estimated GFR > 60 Glucose 132 H POC Capillary Glucose 148 H Calcium 8.0 L Vitamin D 25-Hydroxy 20.1 Procedures/Treatments: Left total hip arthroplasty Discharge Plan Discharge Patient Disposition: Home, Self-Care Di
--- NOTE | 2023-02-19 12:45 | PM.IMPN ---
Progress Note: A&P Assessment and Plan (1) Left hip pain: Code(s): M25.552 - Pain in left hip Status: Acute Assessment and Plan: s/p L total hip arthroplasty on 02/18. Ambulate with assistance and up to chair cardiac monitoring Q4H closed drain in place - management BID hip precautions in place use IS SCDs resume diet pain management bowel regimen: docusate/senna, polyethylene glycol (2) Acute urinary retention: Code(s): R33.8 - Other retention of urine Status: Acute Assessment and Plan: Miller catheter was taken out on 02/19/2023. Patient was able to void on his own. Plan to continue tamsulosin. (3) Essential (primary) hypertension: Code(s): I10 - Essential (primary) hypertension Status: Acute Assessment and Plan: Continue and monitor blood pressure. (4) Pure hypercholesterolemia, unspecified: Code(s): E78.00 - Pure hypercholesterolemia, unspecified Status: Acute Assessment and Plan: Continue simvastatin. (5) Paroxysmal atrial fibrillation: Code(s): I48.0 - Paroxysmal atrial fibrillation Status: Acute Assessment and Plan: Continue home flecainide and metoprolol. Continue tele monitoring. Subjective Date/time seen: 02/19/23 12:45 Interval history: Patient doing well today. Complains of minimal pain. Patient able to void after catheter removal. Okay to discharge from hospitalist standpoint. Exam Narrative: GENERAL: Comfortable, no acute distress HENMT: moist mucous membranes EYES: EOM intact b/l RESPIRATORY: clear to auscultation CARDIO: RRR GI: soft, nontender, bowel sounds present SKIN: no rashes Objective Data Vital Signs Vital Signs: Vital Signs - 24 hr 02/18/23 12:50 02/18/23 13:22 02/18/23 13:20 Temperature 97.4 F L 97.9 F Pulse Rate 60 60 Respiratory Rate 14 14 Blood Pressure 140/77 145/67 H Pulse Oximetry 97 100 Oxygen Delivery Room Air Room Air 02/18/23 14:25 02/18/23 14:17 02/18/23 13:35 Temperature 97.8 F Pulse Rate 64 67 Respiratory Rate 14 Blood Pressure 130/64 Pulse Oximetry 100 Oxygen Delivery Room Air 02/18/23 14:05 02/18/23 16:05 02/18/23 17:23 Temperature 97.6 F Pulse Rate 67 60 64 Respiratory Rate 16 Blood Pressure 139/62 Pulse Oximetry 100 Oxygen Delivery 02/18/23 18:39 02/18/23 22:05 02/18/23 20:00 Temperature 98.2 F 98.2 F Pulse Rate 65 61 63 Respiratory Rate 18 18 Blood Pressure 138/75 138/75 Pulse Oximetry 99 97 Oxygen Delivery 02/19/23 02:39 02/19/23 00:00 02/19/23 04:00 Temperature 97.9 F Pulse Rate 60 66 60 Respiratory Rate 18 Blood Pressure 135/62 Pulse Oximetry 97 Oxygen Delivery 02/19/23 06:39 02/19/23 08:40 02/19/23 08:41 Temperature 98.6 F Pulse Rate 60 60 60 Respiratory Rate 18 Blood Pressure 140/49 L Pulse Oximetry 97 Oxygen Delivery 02/19/23 08:15 Temperature Pulse Rate Respiratory Rate Blood Pressure Pulse Oximetry Oxygen Delivery Room Air Intake/Output Intake/Output: Intake & Output 02/16/23 02/17/23 02/18/23 02/19/23 23:59 23:59 23:59 23:59 Intake Total 2660 1440 Output Total 1350 Balance 2660 90 Meds/Results Medications: Active Medications Generic Name Dose Route Start Last Admin Trade Name Adánq PRN Reason Stop Dose Admin Acetaminophen 1,000 mg 02/18/23 20:00 02/19/23 08:39 Acetaminophen 500 Mg Tablet PO 1,000 mg Q6H BARBARA Administration Apixaban 2.5 mg 02/19/23 09:00 02/19/23 08:39 Apixaban 2.5 Mg Tablet PO 2.5 mg Q12HR BARBARA Administration Aspirin 81 mg 02/19/23 08:00 02/19/23 08:39 Aspirin 81 Mg Chewable Tablet PO 81 mg DAILY@0800 [facility] Administration Calcium Citrate 1 tablet 02/19/23 09:00 02/19/23 10:00 Calcium Citrate 315 Mg/Vitamin D 250 Units Tab PO 1 tablet BID BARBARA Administration Cefdinir 300 mg 02/19/23 09:00 02/19/23 10:01
--- NOTE | 2023-02-19 13:53 | WPDANESPN ---
Anes - Prog Note Post-Op Date/Time: 02/19/23 13:53 Vital Signs: Last Vital Signs Temp 36.7 C 02/19/23 13:08 Pulse 61 02/19/23 13:08 Resp 18 02/19/23 13:08 BP 112/58 L 02/19/23 13:08 Pulse Ox 97 02/19/23 13:08 O2 Del Method Room Air 02/19/23 08:15 O2 Flow Rate 6 02/18/23 12:20 Pain Score (VAS): 0 I/O: Intake & Output 02/18/23 02/19/23 02/19/23 23:59 07:59 15:59 Intake Total 1710 1200 480 Output Total 1350 1075 Balance 2539 -150 -653 Laboratory Tests 02/19/23 05:17 02/19/23 05:17 02/19/23 05:17 WBC 10.8 H RBC 3.41 L Hgb 10.4 L D Hct 31.9 L MCV 93.5 MCH 30.5 MCHC 32.6 RDW 13.0 Plt Count 128 L MPV 10.8 H Immature Gran % (Auto) 0.5 Neut % (Auto) 74.5 H Lymph % (Auto) 15.5 L Bradford % (Auto) 9.1 H Eos % (Auto) 0.1 Baso % (Auto) 0.3 Lymph # (Auto) 1.67 Bradford # (Auto) 1.0 H Eos # (Auto) 0.0 Baso # (Auto) 0.0 Abs Immat Gran (auto) 0.05 H Absolute Neuts (auto) 8.0 H Absolute Nucleated RBC 0.0 Nucleated RBC % 0.0 Sodium 135 L Potassium 4.0 Chloride 106 Carbon Dioxide 22 Anion Gap 7 L BUN 19 Creatinine 1.20 Estim Creat Clear Calc 80 Estimated GFR > 60 Glucose 132 H Calcium 8.0 L Vitamin D 25-Hydroxy 20.1 Patient Feedback: Patient satisfied with anesthetic care.
== END 2023-02-19 14:45 | disposition home or self-care (01) ==
LOC: ANHSURGERY 05:49 → ANH3MED 12:59
PROVIDERS: Physician Assistant Surgical; PCP Family Medicine Adolescent Medicine; Visit Provider Orthopaedic Surgery
PROC: (CPT 27130; principal; 2023-02-18 07:30)
DX: M16.12 Unilateral primary osteoarthritis, left hip (principal); R33.8 Other retention of urine; M89.8X9 Other specified disorders of bone, unspecified site; E78.00 Pure hypercholesterolemia, unspecified; I10 Essential (primary) hypertension; I48.0 Paroxysmal atrial fibrillation; I49.3 Ventricular premature depolarization; Z95.0 Presence of cardiac pacemaker; E66.9 Obesity, unspecified; Z68.34 Body mass index [BMI] 34.0-34.9, adult; Z79.82 Long term (current) use of aspirin
CPT/HCPCS: 27130; 36415; 73501; 80048; 80307; 82040; 82306; 82948; 83036; 85025; 86850; 86900; 86901; 87081; 97110; 97161; 97165; 97530; 97535; 99199; A9270; C1776; J0171; J0330; J0690; J1100; J1170; J1885; J2250; J2270; J2405; J2704; J2795; J3010; J3370; J7030; J7120

== ENCOUNTER 2024-02-17 09:45 | Outpatient (CLI) | payer OTHER, SELFPAY ==
--- NOTE | 2024-03-13 11:11 | P.SLEEP_ITS ---
Sleep Study - Home Unattended Date of Study: 02/17/24 Ordering Provider: Abiel Tuttle MD Interpreting Provider: Cate Patino DO Home Sleep Study Type: Watch PAT Height: 1.91 m Weight: 127.006 kg Body Mass Index: 34.9 Neck Circumference (inches): 18 [place]: 8 Reason for Sleep Study Difficulty falling and staying asleep Sleep History The patient is a 63-year-old male that had a sleep study ordered by his packaging inspector for evaluation of sleep apnea. The patient admits to having difficulty falling asleep and maintaining sleep. He denies snoring. He denies interruptions and breathing while asleep. He denies choking or gasping. He denies having trouble breathing on his back. He denies morning headaches. He denies having a dry or sore mouth/ throat in the morning. He denies nocturnal heartburn. He denies nocturia. He does have difficulty falling back asleep if he wakes up throughout the night. He denies any hypnotic or sedative use. He denies feeling anxious about sleep. He does feel tired or sleepy during the day. He does feel tired in the morning. He denies having the urge to fall asleep during the day. He denies feeling drowsy while driving. He denies sleep paralysis, cataplexy and hypnagogic / hypnopompic hallucinations. He denies clenching or grinding his teeth. He denies kicking or jerking his legs excessively. He denies having a restless feeling in his legs. He goes to bed at 10:30 p.m. on both weekdays and weekends. It takes him 15 minutes to fall asleep. He gets 6 hours of sleep per night. His sleep is not restorative on his days off. He denies taking any point naps. He denies dream enactment behavior. He denies sleep walking. He consumes 1-2 cups of caffeinated beverage per day. He consumes 1 alcoholic beverage 1-2 nights per week. He denies tobacco use. He exercises 1-2 nights per week. [facility] Past Medical History Medical History Pacemaker Biotronik pacemaker placed in 2007 for sick sinus syndrome. 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 Smoking status: Never smoker Second hand tobacco smoke exposure: Yes (parents smoked) Alcohol intake: current Drinks per week: 2 Substance use: never Substance use type: does not use Current Housing: Decline to Answer Concerned About Future Housing: Decline to Answer Difficulty Paying Gas/Electric Bills: Decline to Answer Difficulty Paying for Meds: Decline to Answer Currently Unemployed: Decline to Answer Education: Decline to Answer Difficulty w/ Childcare or Family Care: Decline to Answer Living arrangements: with family Occupation/Education: retired Gender identity (if verbalized by the patient): Male Sexual Orientation (if Verbalized by the Patient): Straight or Heterosexual Spiritual care concerns: No Agree to blood products: Yes Medications Home Medications ?Medication ?Instructions ?Recorded ?Confirmed ?Type flecainide 100 mg tablet 150 mg PO BID 04/03/20 02/22/24 History magnesium 250 mg tablet 250 mg PO DAILY 04/03/20 02/22/24 History metoprolol succinate 100 mg 100 mg PO DAILY 04/03/20 02/22/24 History tablet,extended release 24 hr multivitamin 1 tablet PO DAILY 04/03/20 02/22/24 History valsartan 160 mg tablet 160 mg PO DAILY 08/20/21 02/22/24 History acetaminophen 500 mg tablet 1,000 mg (2 x 500 mg) PO Q6H #90 02/19/23 02/01/24 Rx tabs calcium 315 mg (as 1 tablet PO DAILY #90 tabs 02/19/23 02/22/24 Rx citrate)-vitamin D3 5 mcg (200 unit) tablet (Calcium Citrate + D) simvastatin 20 mg tablet 20 mg PO DAILY #90 tabs 11/04/23 02/22/24 Rx rivaroxaban 20 mg tablet (Xarelto) 20 mg PO DAILY 02/01/24 02/22/24 History Sleep Procedure The sleep study was completed using [employer] a technically adequate device with seven channels: peripheral arterial tone, actigraphy, body position, snore, respiratory movement, pulse oximetry, sleep staging, and heart rate. Prior to using the device, the patient received verbal and written instructions for its application and was provided with the help desk phone number for additional telephonic instruction with 24-hour availability of qualified personnel to answer questions. The study was scored using AASM guidelines. Sleep Architecture The total recording time is 7 hrs, 45 min. The total sleep time is 6 hrs, 27 min. Sleep latency is 23 minutes. REM latency is 202 minutes. The patient had 12 episodes of waking. Sleep architecture shows 19.7% deep sleep, 77.2% light sleep, and (as % Total Sleep Time) showed NREM (Light 77.2%; Deep 19.7%), and a 3.1% stage REM. The patient spent 38.9% of total sleep time in the supine position. Sleep efficiency was 83.23. Respiratory Analysis The overall AHI (pAHI 3%:) is 6.8. The central AHI is 0.8. The AHI was N/A in NREM and N/A in REM sleep. The AHI was 5.6 in Supine and 7.5 in Non-supine sleep. Percent of [place] respirations is 0.0. Oximetry Data The oxygen desaturation index (RHONDA 4%:) is 1.0. The mean saturation is 94%, and the lowest saturation is 89%. Time spent with saturation < 88% is 0.0 minutes. Snoring Profile Snoring average intensity is 40 dB. The patient snored above 45 decibels for 8.0 minutes, 2.1% of sleep time. Cardiac Profile The average pulse rate is 60 beats per minutes. The lowest pulse rate is 51 bpm. The highest pulse rate reported is 77 bpm. Atrial fibrillation was not detected. Premature beats occur <0.1 per minute. Assessment and Plan Assessment and Plan (1) KARLA (obstructive sleep apnea): Code(s): G47.33 - Obstructive sleep apnea (adult) (pediatric) Status: Acute Assessment and Plan: The patient had an overall AHI of 6.8 with desaturation down to 89%. This is consistent with mild sleep apnea. Due to the patient's insomnia, he qualifies for treatment. I recommend that the patient be prescribed AutoPAP 5-15 cm H2O, CPAP mask/filters/tubing and heated humidity. This should be used with all episodes of sleep.? Compliance should be reviewed within 31-90 days of starting therapy for usage greater than 4 hours per night greater than 70% of the nights. The patient should be asked about symptoms such as?excessive daytime sleepiness, quality of sleep, decreased nocturia, increased?mental functioning such as memory, mood, and concentration. Data The data obtained during this sleep study is adequate for interpretation. Certification This sleep study has been reviewed by a board certified sleep medicine physician.
[2024-03-13 11:12] VITALS: BMI 34.9
== END 2024-02-18 13:20 | disposition home or self-care (01) ==
LOC: ANHCSM 09:53
PROVIDERS: PCP Family Medicine Adolescent Medicine; Visit Provider Internal Medicine Cardiovascular Disease
DX: G47.33 Obstructive sleep apnea (adult) (pediatric) (principal); G47.10 Hypersomnia, unspecified
CPT/HCPCS: 95800

== ENCOUNTER 2024-06-06 14:46 | Outpatient (CLI) | payer OTHER, SELFPAY ==
--- NOTE | ~2024-06-06 | CT_ITS ---
EXAMINATION: CT abdomen pelvis w con DATE: 06/06/2024 15:14 INDICATION: Elevated 5-HIAA. Suspected carcinoid syndrome. TECHNIQUE: Computed tomography (CT) of the abdomen and pelvis was performed with 100 mL Omnipaque-350 intravenous contrast. Automated exposure control and iterative reconstruction technique were employe d. The dose-length product was 1106.79 mGy-cm. COMPARISON: None FINDINGS: Lung bases are clear. Heart size is normal. No pericardial or pleural effusion. Cardiac pacemaker romel d extending into the right ventricle with second right atrial lead seen on the silver holloware assembler topogram. Liver, gallbladder, spleen, pancreas and bilateral adrenal glands are normal. Bilateral renal cysts the lar babs on the left measuring 2.4 cm. Bladder is normal. Bowels including the appendix are normal. Mesent vel appears unremarkable. No pathologically enlarged abdominal or pelvic lymphadenopathy. No free int raperitoneal gas or fluid. Left total hip arthroplasty. Mild lumbar levocurvature with moderate to se kobe spondylosis. IMPRESSION: 1. No lesion suspicious for neoplasm in the abdomen, pelvis or visualized lower chest. Reviewed, dictated and finalized at location B.
[2024-06-06 15:05] LABS: Estimated Glomerular Filt Rate 56
== END 2024-06-06 14:47 | disposition home or self-care (01) ==
PROVIDERS: PCP Family Medicine Adolescent Medicine; Visit Provider Family Medicine Adolescent Medicine
DX: R23.2 Flushing (principal)
CPT/HCPCS: 74177; Q9967

== ENCOUNTER 2024-08-30 02:20 | Day surgery (SDC) | payer OTHER, SELFPAY ==
[2024-08-25 15:58] VITALS: BMI 35.6
--- NOTE | 2024-08-26 12:11 | PC.NURSE ---
08/25/2024 late entry Spoke with _patient regarding medication XARELTO. Patient_verbalizes understanding that the last dose is to be taken on _08/27/2024_ and the Endoscopist will instruct them when to restart after the procedure.
--- OUTSIDE RECORDS SUMMARY | 2024-08-30 02:24 | XMS_ITS | Encounter Summary ---
Author Organization [facility] Address 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 Anish Christine MD [address] [facility] [address] [place] [id number] Other Nonspecific Abnormal Cardiovascular System Function Study Social History Tobacco Use Types Packs/Day Years Used Date Smoking Tobacco: Never Assessed Sex and Gender Information Value Date Recorded Sex Assigned at Not on file 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 [address]~ [email or web address]~~ ----- -------~Cardiac Catheterization Comprehensive Report~~Patient: Escobar HopperMRN: [id number]~Study ID: [id number]~Gender: M~: 1960~Age: 46 years~Race: 1~Room:~Bed:~Height: 75 in ( 190.5 cm )~Study Date: May 11, 2007~Patient status: Outpatient~Weight: 284.9 lb ( 129.5 kg )~Access. #: [id number]~POC:~ ~~Attending MD: Johnathon~Performing MD: Johnathon~~ ----- --------~~Procedure( s) Performed:~~DIAGNOSTIC PROCEDURES:~Left heart catheterization. Left ventriculography. Selective coronary~angiography.~~ ----- --------~~Study Conclusions:~~SUMMARY~- Global left ventricular function was normal. EF estimated by contrast~ventriculography was 50 %.~- There was no angiographic evidence for coronary artery disease.~~COMPLICATIONS:~~There were no complications.~~ ----- -~~Description of Procedure:~~BACKGROUND INFORMATION:~Contrast (Omnipaque, 120 ml ) was administered during the procedure. The~patient was given 5.000 mg VERSED.~~ ~ ~Hemo dynamics:~~IMPRESSIO NS:~Hemodynamic assessment demonstrated normal hemodynamics, normal arterial~pressure, normal LV end diastolic pressure and normal systemic pressure.~~ -~~Ca rdiac structures:~~VENTRICULOGRAPHY:~There were no left ventricular regional wall motion abnormalities. Global~left ventricular function was normal. EF estimated by contrast~ventriculography was 50 %. The left ventricle was normal in size.~~VALVES:~~Aortic valve: The valve was evaluated by left ventriculography. The aortic~valve appeared to be structurally normal. Aortic valve leaflets exhibited~normal thickness and normal excursion. There was no aortic stenosis.~~Mitral valve: The valve was evaluated by left ventriculography. The mitral~valve appeared grossly normal. The leaflets exhibited normal thickness and~normal excursion. The mitral valve exhibited no regurgitation.~~ ----- -~~Coronary and graft angiography:~~LEFT MAIN CORONARY ARTERY:~Left main: Angiographically normal.~~LEFT ANTERIOR DESCENDING AND BRANCHES:~LAD: Angiographically normal.~~LEFT CIRCUMFLEX AND BRANCHES:~Circumflex: Angiographically normal.~~RIGHT CORONARY AND BRANCHES:~RCA: Angiographically normal.~~IMPRESSIONS:~There was no angiographic evidence for coronary artery disease.~~ ~~Con dition1:~--- Pressure mmHg Rate dPdt~AO 109-S/ 68-D, 87-M 76 BPM~LV 137-S/ 0-BD, 14-ED 76 BPM 3500~AOp 118-S/ 32-D, 67-M 76 BPM~~ ~~--- ----- ~~Prepared and Electronically Authenticated~~Anish Smith MD~Confirmed May 11, 2007 15:36:47~ Procedure Note Provider, Historical - 07/01/2007 Please type in written order [facility] [id number] [place] [address]~ [email or web address]~~ ----- -------~Cardiac Catheterization Comprehensive Report~~Patient: Escobar Vasquez~ ~Study ID: [id number]~Gender: M~: 1960~Age:46 years~Race: 1~Room:~Bed:~Height: 75 in ( 190.5 cm )~Study Date:May 11, 2007~Patient status: Outpatient~Weight: 284.9 lb ( 129.5 kg )~Access. #:[id number]~POC:~ ~~Attending MD: Johnathon~Performing MD: Johnathon~~ ----- --------~~Procedure( s) Performed:~~DIAGNOSTIC PROCEDURES:~Left heart catheterization. Leftventriculography. Selective coronary~angiography.~~ ----- --------~~Study Conclusions:~~SUMMARY~- Global left ventricular function was normal. EFestimated by contrast~ventriculography was 50 %.~- There was no angiographic evidencefor coronary artery disease.~~COMPLICATIONS:~~There were no complications.~~ ----- -~~Description of Procedure:~~BACKGROUND INFORMATION:~Contrast (Omnipaque, 120 ml ) wasadministered during the procedure. The~patient was given 5.000 mg VERSED.~~ ~ ~Hemo dynamics:~~IMPRESSIO NS:~Hemodynamic assessment demonstrated normal hemodynamics, normalarterial~pressure, normal LV end diastolic pressure and normal systemic pressure.~~ -~~Ca rdiac structures:~~VENTRICULOGRAPHY:~There were no left ventricular regionalwall motion abnormalities. Global~left ventricular function was normal. EF estimated bycontrast~ventriculography was 50 %. The left ventricle was normal in size.~~VALVES:~~Aortic valve: The valve wasevaluated by left ventriculography. The aortic~valve appeared to be structurally normal. Aortic valve leafletsexhibited~normal thickness and normal excursion. There was no aortic stenosis.~~Mitral valve: The valvewas evaluated by left ventriculography. The mitral~valve appeared grossly normal. The leafletsexhibited normal thickness and~normal excursion. The mitral valve exhibited no regurgitation.~~ ----- -~~Coronary and graft angiography:~~LEFT MAIN CORONARY ARTERY:~Left main: Angiographicallynormal.~~LEFT ANTERIOR DESCENDING AND BRANCHES:~LAD: Angiographically normal.~~LEFT CIRCUMFLEXAND BRANCHES:~Circumflex: Angiographically normal.~~RIGHT CORONARY AND BRANCHES:~RCA:Angiographically normal.~~IMPRESSIONS:~There was no angiographic evidence for coronary artery disease.~~ ~~Con dition1:~--- Pressure mmHg Rate dPdt~AO 109-S/ 68-D, 87-M 76 BPM~SM958-P/ 0-BD, 14-ED 76 BPM 3500~AOp 118-S/ 32-D, 67-M 76 BPM~~ ~~--- ----- ~~Prepared and ElectronicallyAuthenticated~~Anish Smith MD~Confirmed May 11, 2007 15:36:47~ us Anish Smith MD FLUOROSCOPY ORDERABLES Final Result INTERFACE SYSTEM Refer to clinic/hospital department * CL CORONARY ANGIOGRAM (05/11/2007 4:02 PM ASIC ENGINEER) Narrative INTERFACE SYSTEM - 05/11/2007 4:02 PM ASIC ENGINEER Please type in written order [facility] [place] [address] [place] [address] [email or web address] Cardiac Catheterization Comprehensive Report Patient: Escobar Vasquez Study ID: [id number] Gender: M : 1960 Age: 46 years Race: 1 Room: Bed: Height: 75 in ( 190.5 cm ) Study Date: May 11, 2007 Patient status: Outpatient Weight: 284.9 lb ( 129.5 kg ) Access. #: [id number] POC: Attending MD: Johnathon Performing : Johnathon Procedure(s) Performed: DIAGNOSTIC PROCEDURES: Left heart catheterization. Left ventriculography. Selective coronary angiography. Study Conclusions: SUMMARY - Global left ventricular function was normal. EF estimated by contrast ventriculography was 50 %. - There was no angiographic evidence for coronary artery disease. COMPLICATIONS: There were no complications. Description of Procedure: BACKGROUND INFORMATION: Contrast (Omnipaque, 120 ml ) was administered during the procedure. The patient was given 5.000 mg VERSED. Hemodynamics: IMPRESSIONS: Hemodynamic assessment demonstrated normal hemodynamics, normal arterial pressure, normal LV end diastolic pressure and normal systemic pressure. Cardiac structures: VENTRICULOGRAPHY: There were no left ventricular regional wall motion abnormalities. Global left ventricular function was normal. EF estimated by contrast ventriculography was 50 %. The left ventricle was normal in size. VALVES: Aortic valve: The valve was evaluated by left ventriculography. The aortic valve appeared to be structurally normal. Aortic valve leaflets exhibited normal thickness and normal excursion. There was no aortic stenosis. Mitral valve: The valve was evaluated by left ventriculography. The mitral valve appeared grossly normal. The leaflets exhibited normal thickness and normal excursion. The mitral valve exhibited no regurgitation. Coronary and graft angiography: LEFT MAIN CORONARY ARTERY: Left main: Angiographically normal. LEFT ANTERIOR DESCENDING AND BRANCHES: LAD: Angiographically normal. LEFT CIRCUMFLEX AND BRANCHES: Circumflex: Angiographically normal. RIGHT CORONARY AND BRANCHES: RCA: Angiographically normal. IMPRESSIONS: There was no angiographic evidence for coronary artery disease. Condition1: --- Pressure mmHg Rate dPdt AO 109-S/ 68-D, 87-M 76 BPM LV 137-S/ 0-BD, 14-ED 76 BPM 3500 AOp 118-S/ 32-D, 67-M 76 BPM Prepared and Electronically Authenticated Anish Smith MD Confirmed May 11, 2007 15:36:47 Procedure Note Provider, Historical - 05/21/2007 Please type in written order [facility] [place] [address] [place] [address] [email or web address] Cardiac Catheterization Comprehensive Report Patient: Escobar Vasquez Study ID: [id number] Gender: M : 1960 Age: 46 years Race: 1 Room: Bed: Height: 75 in ( 190.5 cm ) Study Date: May 11, 2007 Patient status: Outpatient Weight: 284.9 lb ( 129.5 kg ) Access. #: [id number] POC: Attending MD: Johnathon Performing MD: Johnathon Procedure(s) Performed: DIAGNOSTIC PROCEDURES: Left heart catheterization. Left ventriculography. Selective coronary angiography. Study Conclusions: SUMMARY - Global left ventricular function was normal. EF estimated by contrast ventriculography was 50 %. - There was no angiographic evidence for coronary artery disease. COMPLICATIONS: There were no complications. Description of Procedure: BACKGROUND INFORMATION: Contrast (Omnipaque, 120 ml ) was administered during the procedure. The patient was given 5.000 mg VERSED. Hemodynamics: IMPRESSIONS: Hemodynamic assessment demonstrated normal hemodynamics, normal arterial pressure, normal LV end diastolic pressure and normal systemic pressure. Cardiac structures: VENTRICULOGRAPHY: There were no left ventricular regional wall motion abnormalities.Global left ventricular function was normal. EF estimated by contrast ventriculography was 50 %. The left ventricle was normal in size. VALVES: Aortic valve: The valve was evaluated by left ventriculography. Theaortic valve appeared to be structurally normal. Aortic valve leafletsexhibited normal thickness and normal excursion. There was no aortic stenosis. Mitral valve: The valve was evaluated by left ventriculography. Themitral valve appeared grossly normal. The leaflets exhibited normal thicknessand normal excursion. The mitral valve exhibited no regurgitation. Coronary and graft angiography: LEFT MAIN CORONARY ARTERY: Left main: Angiographically normal. LEFT ANTERIOR DESCENDING AND BRANCHES: LAD: Angiographically normal. LEFT CIRCUMFLEX AND BRANCHES: Circumflex: Angiographically normal. RIGHT CORONARY AND BRANCHES: RCA: Angiographically normal. IMPRESSIONS: There was no angiographic evidence for coronary artery disease. Condition1: --- Pressure mmHg Rate dPdt AO 109-S/ 68-D, 87-M 76 BPM LV 137-S/ 0-BD, 14-ED 76 BPM 3500 AOp 118-S/ 32-D, 67-M 76 BPM Prepared and Electronically Authenticated Anish Smith MD Confirmed May 11, 2007 15:36:47 us Anish Smith MD FLUOROSCOPY ORDERABLES Final Result Performing Organization Address City/State/[facility] Co de Phone Number INTERFACE SYSTEM Refer to clinic/hospital department documented in this encounter Visit Diagnoses Diagnosis Other nonspecific abnormal cardiovascular system function study documented in this encounter Care Teams Gynecology Teacher Relationship Specialty Start Date End Date Campbell Muir MD PCP - General Family Practice 04/01/13 documented as of this encounter
--- OUTSIDE RECORDS SUMMARY | 2024-08-30 02:24 | XMS_ITS | Encounter Summary ---
Author Organization [facility] Address [address] [place] [address] Care Team Providers Care Golf Club Repairer Name Role Phone Onel Azul MD Primary Care Prov ider Encounter Details Date Type Department Care Team (Latest Contact Info) Description 08/19/2024 Results Follow-Up [facility] Cardiology [address] [place] [address] Abiel Tuttle MD [address] [facility] [address] [facility] [address] [place] [address] Transthoracic Echo (TTE) Complete W Doppler/CF Social History Tobacco Use Types Packs/Day Years Used Date Smoking Tobacco: Never Smokeless Tobacco: Never Alcohol Use Standard Drinks/Week Comments Yes 0 (1 standard drink = 0.6 oz pur e alcohol) AUDIT-C Answer Date Recorded Q1: How often do you have a drink containing alc ohol? Monthly or less 06/15/2024 Q2: How many drinks containi ng alcohol do you have on a typical day when you are drinking? 1 or 2 06/15/2024 Q3: How often do you have si x or more drinks on one occasion? Never 06/15/2024 Personal Safety Answer Date Recorded Have you ever been in or are you currently in a harmful physical or emotional relationship or is someone making you feel afraid or unsafe? 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
--- OUTSIDE RECORDS SUMMARY | 2024-08-30 02:24 | XMS_ITS | Encounter Summary ---
Author Organization [facility] Address [address] [place] [address] Phone Care Team Providers Care Client Service Administrator Name Role Phone Onel Azul MD Primary Care Prov ider Encounter Details Date Type Department Care Team (Late st Contact Info) Description 07/13/2024 Results Follow-Up [facility] Cardiology [address] [facility] [address] [place] [id number] Maru Singh, EQUAL OPPORTUNITY ASSISTANT [address] [facility] [address] [place] [address] ECG 12 lead Social History Tobacco Use Types Packs/Day Years [...] on file 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
--- OUTSIDE RECORDS SUMMARY | 2024-08-30 02:24 | XMS_ITS | Clinical Summary ---
Author Organization [facility] Address [address] [place] [address] Phone Care Team Providers Care Physical Scientist Name Role Phone Campbell Muir MD Primary Care Provider [phone] Allergies No known active allergies Medications lisinopril-hydro chlorothiazide (ZESTORETIC) 20-12.5 mg tablet Take 1 Tab by mouth daily. Active metoprolol tartrate (LOPRESSOR) 50 mg tablet Take 50 mg by mouth 2 times daily. Active aspirin (EMMY) 325 mg tablet Take 325 mg by mouth daily. Active simvastatin (ZOCOR) 20 mg tablet Take 20 mg by mouth Daily LATE. Active propranolol (INDERAL) 20 mg tablet Take 20 mg by mouth 3 times daily. 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 Gender Identity Not on file Sexual Orientation Not on file Last Filed Vital Signs Vital Sign Reading Time Taken Comments Blood Pressure 127/85 04/01/2013 9:30 PM EDUCATIONAL PSYCHOLOGIST Pulse - - Temperature - - Respiratory Rate 12 04/01/2013 9:30 PM EDUCATIONAL PSYCHOLOGIST Oxygen Saturation 99% 04/01/2013 9:30 PM EDUCATIONAL PSYCHOLOGIST Inhaled Oxygen Concentration - - Weight - - Height - - Body Mass Index - - Plan of Treatment Health Maintenance Due Date Last Done Comments DTAP/TDAP/TD VACCINES (1 - Tdap) 11/20/1978 COLORECTAL SCREENING 11/20/2004 Colorectal Cancer Screening 11/20/2004 FIT-DNA Q 3 years 11/20/2004 FIT/FOBT Q 1 year 11/20/2004 Flex Sig/CT Colonography Q 5 years 11/20/2004 ZOSTER VACCINE (1 of 2) 11/20/2009 INFLUENZA VACCINE (#1) 2023 RSV VACCINE (60+ or ) (1 - 1-dose 75+ series) 11/20/[address] [facility] BLUE ACCESS/TRUE BLUE PPO Care Teams Physical Scientist Relationship Specialty Start Date End Date Campbell Muir MD PCP - General Family Practice 04/01/13
--- OUTSIDE RECORDS SUMMARY | 2024-08-30 02:24 | XMS_ITS | Encounter Summary ---
Author Organization [facility] Address [address] [place] [id number] Care Team Providers Care Twisting Frame Changer Name Role Phone Onel Azul MD Primary Care Prov ider Encounter Details Date Type Department Care Team (Late st Contact Info) Description 06/18/2016 Orders Only [facility] ProviderMariann MD [address] [place] [id number] Social History Tobacco Use Types Packs/Day Years Used Date Smoking Tobacco: Never Alcohol Use Standard Drinks/Week Comments Yes 0 (1 standard drink = 0.6 oz pur e alcohol) Sex and Gender Information Value Date Recorded Sex Assigned at Not on file Legal Sex Male 7:35 PM STYLE ADVISOR Gender Identity Male 06/30/2018 8:46 AM CDT Sexual Orientation Straight 06/30/2018 8: 46 AM CDT documented as of this encounter Plan of Treatment Not on file documented as of this encounter Procedures Procedure Name Priority Date/Time Associated Diagnosis Comments CARDIOLOGY REPORT 06/18/2016 documented in this encounter Results * CARDIOLOGY REPORT (06/18/2016) Anatomical Region Laterality Modality Other Narrative 06/18/2016 Ordered by an unspecified provider. Historical Provider [facility] LISA DAVIS Final Result documented in this encounter Visit Diagnoses Not on filedocumented in this encounter Care Teams Twisting Frame Changer Relationship Specialty Start Date End Date Onel Azul MD [address] [place] [address] PCP - General 06/13/16 documented as of this encounter
--- OUTSIDE RECORDS SUMMARY | 2024-08-30 02:24 | XMS_ITS | Encounter Summary ---
Author Organization [facility] Address [address] [place] [address] Phone Care Team Providers Care Director Of Math Name Role Phone Onel Azul MD Primary Care Prov ider Encounter Details Date Type Department Care Team (Late st Contact Info) Description 05/06/2024 Telephone [facility] Cardiology [facility] Office [address] [place] [address] Hyacinth Butler Social History Tobacco Use Types Packs/Day Years Used Date Smoking Tobacco: Never Smokeless Tobacco: Never Alcohol Use Standard Drinks/Week Comments Yes 0 (1 standard drink = 0.6 oz pur e alcohol) Personal Safety Answer Date Recorded Have you ever been in or are you currently in a harmful physical or emotional relationship or is someone making you feel afraid or unsafe? 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
--- OUTSIDE RECORDS SUMMARY | 2024-08-30 02:24 | XMS_ITS | Referral Summary ---
Author Organization [facility] [address] [place] [address] [address] [place] [address] Care Team Providers Care Switch Adjuster Name Role Phone Onel Azul MD Primary Care Prov ider Encounters Date Type Department Care Team Description 08/19/2024 Results Follow-Up [facility] [address] [place] [address] Cornelia Tuttle MD Transthoracic Echo (TTE) Complete W Doppler/CF 08/17/2024 1:00 PM CDT Ancillary Procedure [facility] [address] [place] [address] [address] [place] [address] Nonrheumatic aortic valve insufficiency 07/13/2024 Results Follow-Up [facility] [address] [place] [address] [address] [place] [phone] Maru Singh NP ECG 12 lead 07/13/2024 3:15 PM CDT Office Visit [facility] [address] [place] [address] [address] [place] [address] Maru Singh NP Pacemaker (Primary Dx); Paroxysmal atrial fibrillation (HCC); Sick sinus syndrome (HCC) 07/13/2024 2:45 PM CDT Ancillary Procedure [facility] [address] [place] [address] [address] [place] [address] Sick sinus syndrome (HCC) (Primary Dx); Pacemaker; Owdhq-Qfuzvjxhu-Qzr te (WPW) pattern; Paroxysmal atrial fibrillation (HCC); Fitting or adjustment of cardiac pacemaker 07/06/2024 Orders Only [facility] [address] [facility] [address] [address] Cornelia Tuttle MD Pacemaker (Primary Dx); Paroxysmal atrial fibrillation (HCC); Sick sinus syndrome (HCC) 07/06/2024 11:30 AM CDT Office Visit [facility] [address] [place] [address] Cornelia Tuttle MD Paroxysmal atrial fibrillation (HCC) (Primary Dx); Pacemaker; Nonrheumatic aortic valve insufficiency; Primary hypertension; Mixed hyperlipidemia; Severe obesity (HCC) 07/06/2024 11:00 AM CDT Ancillary Procedure [facility] [address] [place] [phone] Sick sinus syndrome (HCC); Paroxysmal atrial fibrillation (HCC); Pacemaker 06/15/2024 8:45 AM CDT - 06/15/2024 12:15 PM CDT Surgery [facility] Elect[facility] [address] [place] [address] David Keith MD ABLATION ATRIAL FIBRILLATION (A-FIB) VIA PULMONARY VEIN ISOLATION [id number] 06/15/2024 8:43 AM CDT Anesthesia Event [facility] [address] [place] [address] Enoch May MD Dippolito, Jenny Irene, NP 06/15/2024 5:40 AM CDT - 06/15/2024 2:48 PM CDT Hospital Encounter [facility] [address] [place] [address] David Keith MD Longstanding persistent atrial fibrillation (HCC) [I48.11] (Primary Dx); Paroxysmal atrial fibrillation (HCC) Discharge Disposition: Discharge to home or self care 06/14/2024 9:24 AM CDT - 06/14/2024 11:59 PM CDT Hospital Encounter [facility] [address] [place] [address] David Keith MD Paroxysmal atrial fibrillation (HCC) Discharge Disposition: Discharge to home or self care 06/14/2024 11:00 AM CDT Pre-Admission Testing [facility] ([facility]) [address] [place] [address] Preoperative testing (Primary Dx); Paroxysmal atrial fibrillation (HCC) from Last 3 Months Allergies Active Allergy Reactions Criticality Noted Date Comments Propafenone Angioedema,Other (Se e comments) High 02/19/2024 Hives and throat closed off; went to ER Medications simvastatin (ZOCOR) 20 mg tablet take 1 tablet (20MG) by oral route every day in the evening 0 05/25/19 13 Active multivitamin capsuleIndicati ons:OTC/ Good Health Take 1 capsule by mouth every morning Active magnesium oxide (MAG-OX) 250 mg (150.8 mg elemental) tabletIndicatio ns:hypomagnesem ia,OTC/ for sleep and heart Take 1 tablet (250 mg total) by mouth 2 (two) times a day Active sildenafil (REVATIO) 50 mg tablet Take 1 tablet (50 mg total) by mouth as needed for erectile dysfunction Active calcium citrate-vitamin D3 (CITRACAL+D) 315 mg-5 mcg (200 unit) per tablet Take 1 tablet by mouth daily 02/20/20 23 Active amoxicillin 500 mg capsule Take 4 tablet/capsule (2,000 mg total) by mouth as needed 4 before dental appointment 01/16/20 24 Active rivaroxaban (XARELTO) 20 mg tabletIndicatio ns:atrial fibrillation Take 1 tablet (20 mg total) by mouth daily with dinner 90 tablet 1 04/15/19 25 026 Active amLODIPine (NORVASC) 5 mg tablet Take 1 tablet (5 mg total) by mouth daily 90 tablet 3 06/10/19 25 026 Active metoprolol XL (TOPROL-XL) 50 mg extended release tabletIndicatio ns:Paroxysmal atrial fibrillation (HCC),Essential hypertension TAKE 1 TABLET DAILY 90 tablet 2 05/11/20 25 Active valsartan (DIOVAN) 160 mg tablet TAKE 1 TABLET DAILY 90 tablet 2 07/25/19 25 Active dofetilide (TIKOSYN) 500 mcg capsule TAKE 1 CAPSULE BY MOUTH 2 TIMES A DAY 180 capsule 1 08/10/19 25 Active dofetilide (TIKOSYN) 500 mcg capsuleIndicati ons:cardiac arrhythmia Take 1 capsule (500 mcg total) by mouth 2 (two) times a day 180 capsule 05/13/19 25 025 Discontinued Active Problems Problem Noted Date Diagnosed Date Severe obesity 07/06/2024 AF (atrial fibrillation) 06/15/2024 A-fib 03/30/2024 Assessment & Plan (04/01/2024 7:51 AM ARCHIVAL RECORDS CLERK): History of paroxysmal AFib, with recurrence of AFib/AFib burden on flecainide. Admitted for Tikosyn load. QTC 404, electrolytes and kidney function normal. - Discussed with EP fellow, continue Tikosyn 500 mg b.i.d. - EKG 2 hours after each Tikosyn dose - Telemetry - EP follow-up - Continue home Xarelto, metoprolol - Continue to hold flecainide - Monitor electrolytes Hypersomnolence 12/09/2023 Osteoporosis 03/03/2023 Vitamin D deficiency 02/23/2023 Pain of left hip joint 12/04/2022 Orthostasis 05/14/2022 Lightheadedness 05/02/2021 HLD (hyperlipidemia) 05/02/2021 Assessment & Plan (03/30/2024 11:14 PM ARCHIVAL RECORDS CLERK): History of hyperlipidemia: Continue home Zocor History of exercise intolerance 06/24/2020 Chronic left shoulder pain 04/30/2020 Other chest pain 04/30/2020 Medication monitoring encounter 12/31/2017 Therapeutic drug monitoring 12/31/2017 HTN (hypertension) 04/28/2016 Overview (06/19/2016): Essential hypertension Assessment & Plan (03/30/2024 11:13 PM ARCHIVAL RECORDS CLERK): History of hypertension: Continue home losartan Assessment & Plan (12/21/2016 4:45 PM CDT): BP at goal. Obesity (BMI 30-39.9) 04/28/2016 Overview (06/19/2016): Obesity (BMI 30-39.9) Palpitations 12/17/2015 Overview (06/19/2016): Palpitations Assessment & Plan (12/21/2016 5:01 PM CDT): Bothered by palpitations, which I think are 2nd to freq PVCs (or APCs) but may be PAF as infreq PAF noted on pacer checks. Palps not well-controlled by Bb. Bad allergic reaction with propafenone. Previously pharmacist contacted, unknown if there is any cross-reactivity w/ flecainidethough they are of different structures. Recommended that we try flecainide. Pt is a good candidate w/ Normal LV fxn and no ischemia by recent ezio. Pacemaker 12/17/2015 Overview (04/05/2020): [employer] Dual Pacemaker Dx; SSS, Afib, Destinee-Parkinsons White. Gen change 04/04/2020-[facility], chronic leads 05/28/2007. [employer] remote, office checks Q1 year. Assessment & Plan (12/21/2016 4:43 PM CDT): Pacer checks show APCs, PVCs and some PAF 1-2% of the time. Nonrheumatic aortic valve insufficiency 12/17/19 16 Overview (06/19/2016): Nonrheumatic aortic (valve) insufficiency Non-rheumatic mitral regurgitation 12/17/2015 Overview (06/19/2016): Nonrheumatic mitral valve regurgitation Sick sinus syndrome 09/19/2013 Overview (06/19/2016): SSS (sick sinus syndrome) Pvyob-Krnrdnard-Htczg (WPW) pattern 05/24/2012 Overview (06/20/2016): Omfzl-Noznocfvv-Dwxgv (WPW) syndrome Assessment & Plan (12/21/2016 4:47 PM CDT): H/O WPW ablation, no recurrence, whn 17 y.o. Ventricular premature beats 05/24/2012 Overview (06/20/2016): PVCs (premature ventricular contractions) Assessment & Plan (12/21/2016 4:42 PM CDT): Pacer checks show PACs, PVCs. Paroxysmal atrial fibrillation 05/24/2012 Overview (06/20/2016): ATRIAL FIBRILLATION Assessment & Plan (12/21/2016 4:45 PM CDT): Infreq a fib 1-2% of the time on pacer checks. Resolved Problems Problem Noted Date Diagnosed Date Resolved Date Allergic reaction 12/21/2016 01/12/2019 Assessment & Plan (12/21/2016 4:44 PM CDT): Bad allergic reaciton to propafenone. Obesity 12/17/2015 04/30/2020 Overview (06/19/2016): Morbid obesity due to excess calories Adiposity 09/19/2013 12/31/2017 Overview (06/19/2016): Obesity Mitral valve disease 06/07/2012 021 Overview (06/18/2016): MITRAL VALVE DISORDER Aortic valve disorder 06/07/20122017 Overview (06/20/2016): AORTIC VALVE DISORDER Assessment & Plan (12/21/2016 4:46 PM CDT): 12/2015 Echo = mod AI and MR. Hypertension 05/24/2012 12/31/2017 Overview (06/20/2016): HYPERTENSION NOS Social History Tobacco Use Types Packs/Day Years Used Date Smoking Tobacco: Never Smokeless Tobacco: Never Tobacco Cessation:Counseling Given: Not Answered Alcohol Use Standard Drinks/Week Comments Yes 0 [...] on file Legal Sex Male 7:35 PM ARCHIVAL RECORDS CLERK Gender Identity Male 06/30/2018 8:46 AM CDT Sexual Orientation Straight 06/30/2018 8: 46 AM CDT Last Filed Vital Signs Vital Sign Reading Time Taken Comments Blood Pressure 138/80 07/13/2024 2:49 PM CDT Pulse 62 07/13/2024 2:49 PM CDT Temperature 36.4 C (97.5 F) 06/15/2024 11:37 AM CDT Respiratory Rate 20 06/15/2024 2:27 PM CDT Oxygen Saturation 99% 07/13/2024 2:49 PM CDT Inhaled Oxygen Concentration - - Weight 131.5 kg (290 lb) 07/13/2024 2:49 PM CDT Height 190.5 cm (6' 3) 07/13/2024 2:49 PM CDT Body Mass Index 36.25 07/13/2024 2:49 PM CDT Plan of Treatment Not on file Medical Devices Implanted Type Area Human Service Worker Device Identifier Shelf Expiration Date Model / Serial / Lot Pacemaker-306/2007 Implanted: (Quantity not on file) Pacemaker Chest [employer] SSS, Afib INSIGNIA I 1291 / [id number] / [employer]elez Vascular System Closure Repair Femoral Artery Suture Mediated Perclose Prostyle 19034-96 - [id number] Implanted:Qty : 1 on 06/15/2024 by David Keith MD at [facility] Vascular Closure Device [employer] 03/15/2026 [id number] / / [id number] Description:perclose [employer] Vascade Mvp 6-12fr Venous Closure [id number] - [id number] Implanted:Qty : 1 on 06/15/2024 by David Keith MD at [facility] Vascular Closure Device [employer] 04/25/2026 [id number] / / [id number] Description:Vascade [employer] Vascade Mvp 6-12fr Venous Closure [id number] - [id number] Implanted:Qty : 1 on 06/15/2024 by David Keith MD at [facility] Vascular Closure Device [employer] 12/30/2025 [id number] / / [id number] Description:vascade Procedures Procedure Name Priority Date/Time Associated Diagnosis Comments TRANSTHORACIC ECHO (TTE) COMPLETE W DOPPLER/CF WO CONTRAST Routine 08/17/2024 2:03 PM CDT Nonrheumatic aortic valve insufficiency ECG 12-LEAD Routine 07/13/2024 2:39 PM CDT Pacemaker DEVICE CHECK - IN OFFICE Routine 025 2:33 PM CDT Pacemaker DEVICE CHECK - IN OFFICE Routine 025 10:45 AM CDT Sick sinus syndrome (HCC) Paroxysmal atrial fibrillation (HCC) Pacemaker ATRIAL FIBRILLATION ABLATION ADDITIONAL LINE OR FOCI Routine 06/15/2024 11:17 AM CDT Paroxysmal atrial fibrillation (HCC) ELECTROPHYSIOLOGIC EVALUATION (EPS) / ATRIAL FIBRILLATION ABLATION VIA PULMONARY VEIN ISOLATION Routine 06/15/2024 11:17 AM CDT Paroxysmal atrial fibrillation (HCC) POCT ACTIVATED CLOTTING TIME, HIGH RANGE Routine 06/15/2024 10:21 AM CDT POCT ACTIVATED CLOTTING TIME, HIGH RANGE Routine 06/15/2024 9:49 AM CDT NJ AN PROCEDURE PLACEHOLDER Routine 06/15/2024 9:34 AM CDT NJ AN ELECTIVE ENDOTRACHEAL AIRWAY Routine 06/15/2024 9:34 AM CDT EGFR Routine 06/14/2024 12:14 PM CDT Paroxysmal atrial fibrillation (HCC) URINALYSIS AND REFLEX TO MICROSCOPIC Routine 06/14/2024 12:14 PM CDT Paroxysmal atrial fibrillation (HCC) CBC WITHOUT DIFFERENTIAL Routine 025 12:14 PM CDT Paroxysmal atrial fibrillation (HCC) BASIC METABOLIC PANEL Routine 06/14/2024 12:14 PM CDT Paroxysmal atrial fibrillation (HCC) ECG 12-LEAD Routine 06/14/2024 11:23 AM CDT Preoperative testing CT HEART MORPHOLOGY W CONTRAST Schedule Routine, Read Routine (OP Routine) 06/14/2024 10:30 AM CDT Paroxysmal atrial fibrillation (HCC) POCT CREATININE - DEVICE Routine 025 9:41 AM CDT from Last 3 Months Results * TRANSTHORACIC ECHO (TTE) COMPLETE W DOPPLER/CF WO CONTRAST (08/17/2024 2:03 PM CDT) Estimated EF 65-70 % CONS SCIMAGE EF Mod BP 66 % CONS SCIMAGE Anatomical Region Laterality Modality Ultrasound 08/17/2024 1:01 PM CDT Narrative 08/17/2024 4:17 PM CDT [facility] [address], [place] [address] [address], [place] [address] P:[phone] P:[phone] Echocardiographic Report Patient Name: CHRISTIANO SUN V : 1960 Study Date: 08/17/2024 1:01:22 PM Gender: M Tech: GUADALUPE Location: [facility] Provider: CORNELIA TUTTLE Height(Cm): 190 BSA: 2.63 Weight(Kg): 131.5 Heart Rate: 60 BP: 130 / 80 Quality: Good Order Provider: CORNELIA TUTTLE PROCEDURES: Echocardiographic Report: Transthoracic echocardiogram with complete 2D, M-Mode, and color Doppler examination. With Strain Analysis. INDICATIONS: I35.1 Nonrheumatic aortic (valve) insufficiency. MEASUREMENTS: 2D/MM Value Range Doppler Value Range EF Mod BP 66 % [ 52 - 72 ] IVORY Vmax 2.37 cm2 [ 2.00 - 4.00 ] Estimated EF 65-70 % AV Mean PG 7 mmHg LVIDd 2D 5.58 cm [ 4.20 - 5.80 ] AV Peak Edgar 1.69 m/s [ 1.00 - 1.70 ] LVIDs 2D 3.51 cm [ 2.50 - 4.00 ] AV Peak PG 11 mmHg LVPWd 2D 1.08 cm [ 0.60 - 1.00 ] AV VTI 38.79 cm IVSd 2D 1.06 cm [ 0.60 - 1.00 ] LVOT Diam 1.99 cm [ 1.70 - 2.10 ] LA Volume Index 34 cc/m2 [ 16 - 34 ] LVOT Peak Edgar 1.29 m/s [ 0.70 - 1.10 ] LVOT VTI 30.69 cm PV Peak Edgar 1.15 m/s [ 0.40 - 0.80 ] TR Peak Edgar 2.33 m/s [ 1.00 - 2.80 ] TR Peak PG 22 mmHg 2D/MM Value Range Doppler Value Range - FINDINGS: Interpretation Site: Exam was interpreted at [facility]. Left Ventricle: Normal left ventricular systolic function. No focal wall motion abnormalities. Normal left ventricular size. Mild concentric left ventricular hypertrophy. Diastolic dysfunction is present. Ejection fraction is measured at 66 %. Ejection Fraction is visually estimated to be 65-70 %. Global Longitudinal Strain is -16 %. GLS is borderline. Right Ventricle: Normal right ventricular size. Normal right ventricular systolic function. Left Atrium: There is moderate enlargement of left atrium. Right Atrium: The right atrium is normal in size. Atrial Septum: Normal atrial septum. Mitral Valve: Mild mitral annular calcification. Mild mitral valve regurgitation. There is no hemodynamically significant mitral stenosis by Doppler. Aortic Valve: No evidence of hemodynamically significant aortic stenosis by Doppler. Aortic cusps appear mildly sclerotic. Trileaflet aortic valve. Moderate aortic valve regurgitation. Tricuspid Valve: Normal appearance of the tricuspid valve. Normal right ventricular systolic pressure. Estimated peak RVSP is 25-30 mmHg. Mild tricuspid regurgitation. Pulmonic Valve: Normal appearance of the pulmonic valve. No pulmonic stenosis. Trivial regurgitation in the pulmonic valve. Pericardium: Normal pericardium with no significant pericardial effusion. Aorta: Sinus of Valsalva 3.8 cm. Ascending Aorta 4.1 cm. IVC: Normal size and normal respiratory collapse consistent with normal right atrial pressure (<5 mmHg). CONCLUSIONS: Normal left ventricular systolic function. No focal wall motion abnormalities. Normal left ventricular size. Mild concentric left ventricular hypertrophy. Diastolic dysfunction is present. Ejection fraction is measured at 66 %. Ejection Fraction is visually estimated to be 65-70 %. Global Longitudinal Strain is -16 %. GLS is borderline. There is moderate enlargement of left atrium. Mild mitral annular calcification. Mild mitral valve regurgitation. Moderate aortic valve regurgitation. Mild tricuspid regurgitation. Sinus of Valsalva 3.8 cm. Ascending Aorta 4.1 cm. Normal sinus rhythm. Electronically Signed By: Cornelia Tuttle MD 08/17/2024 4:17:16 PM CDT Procedure Note Cornelia Tuttle MD - 08/17/2024 [facility] [address] [facility] [address], [place], [place] [address] [address] [facility] [address], [place] [address] P:[phone] P:[phone] Echocardiographic Report Patient Name: CHRISTIANO SUN V : 1960 Study Date: 08/17/2024 1:01:22 PM Gender: M Tech: [facility] Location: [facility] Provider: CORNELIA TUTTLE Height(Cm): 190 BSA: 2.63 Weight(Kg): 131.5 Heart Rate: 60 BP: 130 / 80 Quality: Good Order Provider: CORNELIA TUTTLE PROCEDURES: Echocardiographic Report: Transthoracic echocardiogram with complete 2D, M-Mode, and color Dopplerexamination. With Strain Analysis. INDICATIONS: I35.1 Nonrheumatic aortic (valve) insufficiency. MEASUREMENTS: 2D/MM Value Range Doppler ValueRange EF Mod BP 66 % [ 52 - 72 ] IVORY Vmax 2.37cm2 [ 2.00 - 4.00 ] Estimated EF 65-70 % AV Mean PG 7mmHg LVIDd 2D 5.58 cm [ 4.20 - 5.80 ] AV Peak Edgar 1.69m/s [ 1.00 - 1.70 ] LVIDs 2D 3.51 cm [ 2.50 - 4.00 ] AV Peak PG 11mmHg LVPWd 2D 1.08 cm [ 0.60 - 1.00 ] AV VTI 38.79cm IVSd 2D 1.06 cm [ 0.60 - 1.00 ] LVOT Diam 1.99 cm[ 1.70 - 2.10 ] LA Volume Index 34 cc/m2 [ 16 - 34 ] LVOT Peak Edgar 1.29m/s [ 0.70 - 1.10 ] LVOT VTI 30.69 cm PV Peak Edgar 1.15 m/s [ 0.40 - 0.80 ] TR Peak Edgar 2.33 m/s [ 1.00 - 2.80 ] TR Peak PG 22 mmHg 2D/MM Value Range Doppler ValueRange - FINDINGS: Interpretation Site: Exam was interpreted at [facility]. Left Ventricle: Normal left ventricular systolic function. No focal wall motionabnormalities. Normal left ventricular size. Mild concentric left ventricular hypertrophy.Diastolic dysfunction is present. Ejection fraction is measured at 66 %. EjectionFraction is visually estimated to be 65-70 %. Global Longitudinal Strain is -16 %. GLSis borderline. Right Ventricle: Normal right ventricular size. Normal right ventricular systolicfunction. Left Atrium: There is moderate enlargement of left atrium. Right Atrium: The right atrium is normal in size. Atrial Septum: Normal atrial septum. Mitral Valve: Mild mitral annular calcification. Mild mitral valve regurgitation. Thereis no hemodynamically significant mitral stenosis by Doppler. Aortic Valve: No evidence of hemodynamically significant aortic stenosis by Doppler.Aortic cusps appear mildly sclerotic. Trileaflet aortic valve. Moderate aortic valveregurgitation. Tricuspid Valve: Normal appearance of the tricuspid valve. Normal right ventricularsystolic pressure. Estimated peak RVSP is 25-30 mmHg. Mild tricuspid regurgitation. Pulmonic Valve: Normal appearance of the pulmonic valve. No pulmonic stenosis. Trivialregurgitation in the pulmonic valve. Pericardium: Normal pericardium with no significant pericardial effusion. Aorta: Sinus of Valsalva 3.8 cm. Ascending Aorta 4.1 cm. IVC: Normal size and normal respiratory collapse consistent with normal rightatrial pressure (<5 mmHg). CONCLUSIONS: Normal left ventricular systolic function. No focal wall motionabnormalities. Normal left ventricular size. Mild concentric left ventricular hypertrophy.Diastolic dysfunction is present. Ejection fraction is measured at 66 %. EjectionFraction is visually estimated to be 65-70 %. Global Longitudinal Strain is -16 %. GLSis borderline. There is moderate enlargement of left atrium. Mild mitral annular calcification. Mild mitral valve regurgitation. Moderate aortic valve regurgitation. Mild tricuspid regurgitation. Sinus of Valsalva 3.8 cm. Ascending Aorta 4.1 cm. Normal sinus rhythm. Electronically Signed By: Cornelia Tuttle MD 08/17/2024 4:17:16 PM CDT us Cornelia Tuttle MD CV ECHO PROCEDURES Final Result * ECG 12 lead (07/13/2024 2:39 PM CDT) us Maru Singh FIRE RANGER ECG ORDERABLES Edited R esult - Final * DEVICE CHECK - IN OFFICE (07/13/2024 2:33 PM CDT) Anatomical Region Laterality Modality Other 07/13/2024 2:00 AM CDT Narrative 07/17/2024 9:39 PM CDT Interpretation Summary: Procedure Note David Keith MD - 07/17/2024 Interpretation Summary: us David Keith MD CV CARDIAC SERVICES PRO CEDURES Final Result * DEVICE CHECK - IN OFFICE (07/06/2024 10:45 AM CDT) Anatomical Region Laterality Modality Other Narrative 07/06/2024 4:53 PM CDT [employer] Dual Pacemaker Dx; SSS, Afib, Destinee-Parkinsons White. Gen change 04/04/2020-[facility], chronic leads 05/28/2007. [employer] remote monitoring. Supervising MD: Dr Tuttle. Office DDDR Pacemaker f/u today demonstrated appropriate device function. Also has office visit with Dr Tuttle. Left pectoral incision well healed without signs of infection noted. Battery function-Ok, 5.0 years remaining battery life to [employer]. Appropriate lead measurements noted. Presenting rhythm-APVS, Underlying rhythm-SR 60 bpm. 84 mode switch episodes recorded since 05/06/2024, longest duration 1 hour 24 minutes on 06/26/2024-no iegm available for this episode. Per Arrhythmia event summary, 10 ATR events recorded on or after 06/26/24. Available iegm's show oversensing of the ventricle, and <1 minute duration. AF burden 8% since 05/06/24. 256 HVR episodes noted (classified as VT-SVT), iegm's Afib with RVR. Per the arrhythmia event summary HVR episodes occurred on and prior to 06/09/24, iegm's show Afib with RVR. Counters since 05/06/2024; Total PVC's 22.1K. Total PAC's 8.5K. Medications; Xarelto, Tikosyn, and Toprol XL. Atrial sensitivity changed from 0.25 mV to 0.5 mV. See scanned report. [employer] remote f/u 10/05/2024. Pacemaker f/u and ROV with Maru Singh NP 07/13/2024. Elenita Kelly RN us Xochitl Be MD CV CARDIAC SERVICES PROCEDU RES Final Result * ELECTROPHYSIOLOGIC EVALUATION (EPS) / ATRIAL FIBRILLATION ABLATION VIA PULMONARY VEIN ISOLATION, ATRIAL FIBRILLATION ABLATION ADDITIONAL LINE OR FOCI (06/15/2024 11:17 AM CDT) Anatomical Region Laterality Modality X-Ray Angiograph y Narrative 06/15/2024 11:28 AM CDT Patient Name: Christiano Sun Date of : 1960 Patient History Christiano Sun is a 63 y.o. 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 [employer] PPM in 2007, probably for sinus pause/SND. He has had PAF starting in early 2012, previously controlled with flecanide. H/O mild HTN and some hypotension and orthostasis. His atrial fibrillation burden worsened and it was not controlled with antiarrhythmic medication any longer prompting referral for consideration of catheter ablation. While waiting for AF ablation, he underwent dofetilide initiation. His PAF continues to be frequent despite AAD. Heere today for AF ablation. Prior Medical Therapies for Rate and Rhythm Control [x] Beta-mili [] Calcium channel-mili [] Amiodarone [] Dronederone [] Sotalol [x] Flecainide [x] Dofetilide [] Options limited by bradycardia [] Options limited by comorbid renal disease Prior Procedural Therapies for AF/AFL [] Cardioversion [] Pulmonary Vein Isolation [] Posterior Wall Isolation [] Additional lines (Specify) [] Surgical Owens-MAZE or PVI (Specify) Procedure [x] AF ablation procedure (92191) -- includes LA/CS pacing, transseptal, 3D mapping, + ICE [] +IV drug (38318) [] +Other Arrhythmia (06907) [] +Other AF Line/ablation(05305) Risks and expected recovery has been explained in detail. Alternative options have been explored, and in a shared-decision making fashion we have decided that this was the most appropriate procedure. Method NPO status confirmed. Grounding pad applied. Defibrillator pads applied. Continuous surface ECG, pulse oximetry, and blood pressure were monitored. Procedure was performed under general anesthesia, with anesthesia services. Both groins were clipped, prepped with Chloraprep, and draped in sterile fashion. Local anesthesia administered with lidocaine 2%. The right and left femoral veins were accessed for catheter placement, using ultrasound guidance, micro-puncture needle/wire, and modified seldinger technique. 3 sheaths were placed. The following catheters were used: [] TactiFlex (D/F Curve) ablation catheter [x] Viewflex 9Fr ICE catheter [x] Inquiry decapolar 6Fr diagnostic catheter [] CRD Hex 6Fr [x] PulseSelect MDT ablation catheter [] Other: Intracardiac ultrasound (ICE) was carefully advanced into the right atrium to guide sheath placement over a J-wire, catheter placement, guide transseptal puncture, identify potential complications, identify anatomic structures and ensure proper contact between ablation catheter and tissue. Heparin was given to achieve a target ACT of 300-400 seconds. Heparin was given prior to transseptal puncture. Transseptal access was performed under ICE guidance. The transseptal puncture was performed with a [employer] Software RF transseptal system. The wire was visualized as it entered the LSPV. The steerable sheath was advanced into the LA and positioned at the mitral annulus. ICE and 3D mapping was performed to identify relevant cardiac structures. A careful 3D map was created to assess for regions of low-voltage and abnormal electrogram signals. Additional mapping was performed as outlined below. See synopsis for details. Ablation was performed using systematic application of pulses around the ostia and antra of the pulmonary veins. See synopsis and procedure log for details. Post-ablation intracardiac echo evaluation was consistent with pre-ablation with no changes and no pericardial effusion and there is no left atrial thrombus or left ventricle thrombus seen. Hemostasis was obtained with Perclose/Vascade. Protamine was used for reversal. Estimated Blood Loss 5-10 mL Complications None Procedure Synopsis: The patient entered the room in SR. Three-dimensional mapping with EnSite system was performed with reconstruction of left atrium utilizing PulseSelect catheter. Intracardiac ultrasound and EnSite was used for guidance of ablation and placement of the ablation catheter. Using the mapping/ablation catheter, it was confirmed that pulmonary veins were active. All pulmonary veins were isolated successfully using pulses of ablation systematically around the ostia and antra of the bilateral pulmonary veins. Pre- and post pulmonary vein recording and pacing from the ablation catheter was utilized to ensure complete pulmonary vein isolation. LA voltage map created at procedure conclusion confirming WACA of bilateral PVs. Resume anticoagulation today with Eliquis. Resume dofetilide for now. If doing well at follow up can d/c dofet. Recommendations Bedrest with straight-leg precautions as ordered Anticipate discharge home tomorrow after overnight observation F/U with Sagar RASMUSSEN in 4-6 weeks David Keith MD us David Keith MD CV ELECTROPHYSIOLOGY [place] [facility] Final Result * (ABNORMAL) POC Activated Clotting Time, High Range (06/15/2024 10:21 AM CDT) ACT 340(H) 87 - 138 sec POC Performer 1140 [facility] POC Device Number [id number] [facility] Blood 06/15/2024 10:2 1 AM CDT 06/15/2024 10:21 AM CDT us David Keith MD LAB BLOOD ORDERABLES Fi nal Result [facility] [place] [address] * (ABNORMAL) POC Activated Clotting Time, High Range (06/15/2024 9:49 AM CDT) ACT 302(H) 87 - 138 sec POC Performer 1140 [facility] POC Device Number [id number] [facility] Blood 06/15/2024 9:49 AM CDT 06/15/2024 9:49 AM CDT us David Keith MD LAB BLOOD ORDERABLES Fi nal Result [facility] [place] [address] * [place] AN ELECTIVE ENDOTRACHEAL AIRWAY, [place] AN PROCEDURE PLACEHOLDER (06/15/2024 9:34 AM CDT) Narrative Muna Joel CRNA - 06/15/2024 9:34 AM CDT Muna Joel CRNA 06/15/2024 9:35 AM Airway Patient location: OR Urgency: elective Indications for airway management: anesthesia Difficult airway: no Staff: Supervising provider: Enoch May MD Placed by: [employer] BUILDER APPRENTICE: Muna Joel CRNA Emergent airway documentation: Risks and benefits discussed: yes Consent obtained: yes Consent given by: patient Airway prep: Preoxygenated: yes Patient position: sniffing MILS maintained throughout: yes Mask difficulty assessment: 1 - vent by mask Spontaneous ventilation during airway: absent Sedation level during airway: GA Final airway details: Final airway type: endotracheal airway Tube type: ETT ETT size: 8.0 mm Cuffed: yes Technique used for successful ETT placement: video laryngoscopy Devices/Methods used in placement: stylet Insertion site: oral Blade type: Alejandro Video blade type: Alvarez Blade size: 4 Cormack-Lehane (direct): grade IIa - partial view of glottis Cormack-Lehane (video): grade I - full view of glottis Initial cuff pressure: 22 cm H2O Cuff inflated with: air ETT to lips: 24 cm Placement verified by: auscultation Airway secured with: silk tape Number of attempts: 1 Planned trial extubation: yes Enoch May MD ANESTHESIA ORDERABLES Final Result * eGFR (06/14/2024 12:14 PM CDT) eGFR 70 >=60 mL/min/1. 73 m2 Comment: Interpretive Data Reference Interval Normal >/= 90 mL/min/1.73m2 Mildly decreased* 60 - 89 mL/min/1.73m2 Mildly to moderately decreased 45 - 59 mL/min/1.73m2 Moderately to severely decreased 30 - 44 mL/min/1.73m2 Severely decreased 15 - 29 mL/min/1.73m2 Kidney Failure < 15 mL/min/1.73m2 *Relative to young adult level Estimated glomerular filtration rate is determined by the 2020 CKD-EPI equation recommended by the National Kidney Foundation (A Unifying Approach to GFR Estimation: Recommendations of the NKF-ASK Task Force on Reassessing the Inclusion of Race in Diagnosing Kidney Disease, JASN 2020). The CKD-EPI equation should not be used for patients with unstable renal function and has not been validated in children and those over 70. Current interpretive data was last reviewed 2021. Blood 06/14/2024 12:1 4 PM CDT 06/14/2024 12:53 PM CDT us David Keith MD LAB BLOOD ORDERABLES Fi nal Result [facility] [place] [address] * (ABNORMAL) Urinalysis reflex to microscopic (06/14/2024 12:14 PM CDT) Color, ur Straw Yellow Clarity, ur Clear Clear [facility] Specific gravity, ur >1.042(H) 1.003 - 1.030 [facility] pH, urine 6.5 [facility] Comment: Interpretive Data U rine pH is affected by diet, medications, systemic acid-base disturbances, and renal tubular function. pH may affect urinary stone formation. For example, urine pH below 6.0 may help reduce the tendency for calcium phosphate stones and pH greater than 6.0 may reduce the tendency for uric acid stone formation. Source: [facility] Current Interpretive Data was last revised on 2017 Protein, ur ql Trace Negative [facility] Glucose, ur ql Negative Negative [facility] Ketones, ur Negative Negative [facility] Bilirubin, ur Negative Negative [facility] Blood, ur Negative Negative [facility] Urobilinogen, ur <2.0 <2.0 mg/dL [facility] Nitrite, ur Negative Negative [facility] Leukocyte esterase, ur Negative Negative [facility] UA reflex comment Reflex conditions for microscopic UA not met. [facility] Urine 06/14/2024 12:1 4 PM CDT 06/14/2024 12:47 PM CDT David Keith MD LAB URINE ORDERABLES Fi nal Result Performing Organization Address City/State/[facility] Co de Phone Number [facility] [place] [address] * CBC without differential (06/14/2024 12:14 PM CDT) WBC 7.52 3.80 - 9.90 K/cumm Hgb 15.2 13.0 - 17.5 g/dL [facility] Hct 44.6 38.9 - 50.3 % [facility] Plt 188 150 - 400 K/cumm [facility] MPV 11.1 9.1 - 12.3 fL [facility] RBC 5.13 4.30 - 5.80 M/cumm [facility] MCV 86.9 81.3 - 96.4 fL [facility] MCH 29.6 27.1 - 33.3 pg [facility] MCHC 34.1 32.3 - 35.7 g/dL [facility] RDW CV 12.4 11.1 - 14.9 % [facility] RDW SD 39.4 35.7 - 48.1 fL [facility] NRBC abs 0.00 0.00 - 0.01 K/cumm [facility] Blood 06/14/2024 12:1 4 PM CDT 06/14/2024 12:53 PM CDT David Keith MD LAB BLOOD ORDERABLES Fi nal Result Performing Organization Address City/[facility]/ZIP Co de Phone Number [facility] Department [place] [address] * Basic metabolic panel (06/14/2024 12:14 PM CDT) Pathologist [facility] Sodium 140 135 - 145 mmol/L Potassium, pl 4.8 3.3 - 4.9 mmol/L [facility] Chloride 104 97 - 110 mmol/L [facility] CO2 29 22 - 32 mmol/L [facility] Anion gap 7 2 - 15 mmol/L [facility] BUN 12 6 - 25 mg/dL [facility] Creatinine 1.17 0.80 - 1.30 mg/dL [facility] Glucose 112 70 - 199 mg/dL [facility] Comment: Interpretive Data Fasting glucose >/= 126 mg/dl is diagnostic for diabetes. Fasting is defined as no caloric intake for at least 8 hours. Fasting glucose between 100 mg/dl to 125 mg/dl is diagnostic of prediabetes. In a patient with classic symptoms of hyperglycemia or hyperglycemic crisis, a random glucose >/= 200 mg/dl is diagnostic for diabetes. In the absence of unequivocal hyperglycemia, results should be confirmed by repeat testing. The classification and Diagnosis of Diabetes Diabetes Care 2021; 46: S19-S40. Current interpretive data was last revised 2022. Calcium 10.0 8.5 - 10.3 mg/dL [facility] Blood 06/14/2024 12:1 4 PM CDT 06/14/2024 12:53 PM CDT us David Keith MD LAB BLOOD ORDERABLES Fi nal Result Performing Organization Address [facility] Co de Phone Number [facility] [place] [address] * ECG 12 lead (06/14/2024 11:23 AM CDT) Ventricular Rate EKG/Min 63 BPM [facility] Atrial Rate 63 BPM [facility] [place]-Interval (MSEC) 182 ms [facility] QRS-Interval (MSEC) 82 ms [facility] QT-Interval (MSEC) 436 ms [facility] QTc 446 ms [facility] P [place] 59 degrees [facility] R [place] 24 degrees [facility] T [place] 41 degrees [facility] Diagnosis Atrial-paced rhythm with occasional Premature ventricular complexes Abnormal ECG Confirmed by Mic RUBIN, Shivani ([id number]) on 06/15/2024 11:54:39 AM [facility] 06/14/2024 11:2 3 AM CDT 06/15/2024 11:54 AM CDT us [place] Marie Doug FIRE RANGER ECG ORDERABLES Final R esult [facility] * CT Heart Morphology W Contrast (06/14/2024 10:30 AM CDT) Anatomical Region Laterality Modality Chest N/A Computed Tomogra phy 06/14/2024 3:03 PM CDT Impressions 06/14/2024 3:16 PM CDT 1. Pulmonary vein anatomy as described above. 2. Incomplete coaptation of the aortic valve leaflets centrally during diastole in keeping with history of moderate aortic regurgitation. Dictated by: Jose G Carreno MD, PHD The radiology attending physician has personally reviewed this study, and had reviewed and/or edited this written report and agrees with it. Electronically signed by: Christopher Zhou M.D. Narrative 06/14/2024 3:16 PM CDT EXAMINATION: CT HEART MORPHOLOGY W CONTRAST HISTORY: Patient with arrhythmia, pre radiofrequency ablation procedure. TECHNIQUE: Heart CT performed during administration of 94 mL of Optiray 350, intravenously per pulmonary vein protocol. Images were transferred to an independent workstation for additional 3D post-processing. FINDINGS: Pulmonary vein anatomy: There are 2 veins on the left and 2 veins on the right. * Right superior pulmonary vein ostial diameter: 26 x 17 mm. There is no early branching (branching within 10 mm of the ostium). * Right inferior pulmonary vein ostial diameter: 15 x 10 mm. There is early branching of the superior segment of the lower lobe pulmonary vein. * Left superior pulmonary vein ostial diameter: 23 x 15 mm. There is no early branching * Left inferior pulmonary vein ostial diameter: 23 x 12 mm. There is no early branching. The left atrial appendage does not contain thrombus Left atrial diameter: 39 mm Esophagus lies immediately posterior to both left-sided pulmonary veins. Other findings: Heart size is within normal limits. No pericardial effusion. Mild calcified coronary artery disease. Mildly calcified aortic valve with central regurgitant orifice in keeping with history of moderate aortic regurgitation. Left chest wall subclavian approach pacemaker with right atrial and right ventricular leads. Thoracic aorta is normal in caliber. No supraclavicular or axillary lymphadenopathy. No mediastinal or hilar lymphadenopathy. A pleural effusion or pneumothorax. Minimal atelectasis in lung bases. Lungs are otherwise clear. Limited images of the upper abdomen demonstrate a partially imaged left upper pole renal cyst. Multilevel degenerative changes of the spine. No suspicious lytic or blastic lesion. Procedure Note Christopher Zhou MD - 06/14/2024 EXAMINATION: CT HEART MORPHOLOGY W CONTRAST HISTORY: Patient with arrhythmia, pre radiofrequency ablation procedure. TECHNIQUE: Heart CT performed during administration of 94 mL of Optiray 350, intravenously per pulmonary vein protocol. Images were transferred to an independent workstation for additional 3D post-processing. FINDINGS: Pulmonary vein anatomy: There are 2 veins on the left and 2 veins on the right. * Right superior pulmonary vein ostial diameter: 26 x 17 mm. There is no early branching (branching within 10 mm of the ostium). * Right inferior pulmonary vein ostial diameter: 15 x 10 mm. There is early branching of the superior segment of the lower lobe pulmonary vein. * Left superior pulmonary vein ostial diameter: 23 x 15 mm. There is no early branching * Left inferior pulmonary vein ostial diameter: 23 x 12 mm. There is no early branching. The left atrial appendage does not contain thrombus Left atrial diameter: 39 mm Esophagus lies immediately posterior to both left-sided pulmonary veins. Other findings: Heart size is within normal limits. No pericardial effusion. Mild calcified coronary artery disease. Mildly calcified aortic valve with central regurgitant orifice in keeping with history of moderate aortic regurgitation. Left chest wall subclavian approach pacemaker with right atrial and right ventricular leads. Thoracic aorta is normal in caliber. No supraclavicular or axillary lymphadenopathy. No mediastinal or hilar lymphadenopathy. A pleural effusion or pneumothorax. Minimal atelectasis in lung bases. Lungs are otherwise clear. Limited images of the upper abdomen demonstrate a partially imaged left upper pole renal cyst. Multilevel degenerative changes of the spine. No suspicious lytic or blastic lesion. IMPRESSION: 1. Pulmonary vein anatomy as described above. 2. Incomplete coaptation of the aortic valve leaflets centrally during diastole in keeping with history of moderate aortic regurgitation. Dictated by: Jose G Carreno MD, PHD The radiology attending physician has personally reviewed this study, and had reviewed and/or edited this written report and agrees with it. Electronically signed by: Christopher Zhou M.D. David Keith MD IMG CT PROCEDURES Final Result * POCT creatinine (06/14/2024 9:41 AM CDT) Creatinine POC 1.2 0.8 - 1.3 mg/dL Blood 06/14/2024 9:41 AM CDT 06/14/2024 9:41 AM CDT David Keith MD LAB POCT ORDERABLES - D EVICE Final Result [facility] [place] [address] from Last 3 Months Insurance [facility] [employer] Advance Directives For more information, please contact: [phone] * Full Code (Latest Code Status on File) Date Activated Date Inactivated Comments 03/30/2024 6:52 PM 04/02/2024 6:32 PM Care Teams Switch Adjuster Relationship Specialty Start Date End Date Onel Azul MD [address] [place] [address] PCP - General 06/13/16
--- OUTSIDE RECORDS SUMMARY | 2024-08-30 02:24 | XMS_ITS | Encounter Summary ---
Author Organization [facility] Healthcare Address [address] [place] [address] Care Team Providers Care Shell Molder Name Role Phone Onel Azul MD Primary Care Prov ider Encounter Details Date Type Department Care Team (Late st Contact Info) Description 02/17/2024 Orders Only [facility] [place] Health Information Management [address] [place] [id number] Abiel Tuttle MD [address] [facility] [address] [facility], [address] [place] [address] Social History Tobacco Use Types Packs/Day Years Used Date Smoking Tobacco: Never Cigarettes Smokeless Tobacco: Never Alcohol Use Standard Drinks/Week Comments Yes 0 (1 standard drink = 0.6 oz pur e alcohol) Sex and Gender Information Value Date Recorded Sex Assigned at Not on file Legal Sex Male 7:35 PM [employer]OCKST[employer] WA[employer] Gender Identity Male 06/30/2018 8:46 AM CDT Sexual Orientation Straight 06/30/2018 8: 46 AM CDT documented as of this encounter Plan of Treatment Not on file documented as of this encounter Procedures Procedure Name Priority Date/Time Associated Diagnosis Comments SLEEP LAB/STUDY - RESULT 02/17/2024 documented in this encounter Results * SLEEP LAB/STUDY - RESULT (02/17/2024) Abiel Tuttle MD Edited Re sult - Final documented in this encounter Visit Diagnoses Not on filedocumented in this encounter Care Teams Shell Molder Relationship Specialty Start Date End Date Onel Azul MD [address] [place] [address] PCP - General 06/13/16 documented as of this encounter
--- OUTSIDE RECORDS SUMMARY | 2024-08-30 02:24 | XMS_ITS | Clinical Summary ---
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 Pacemaker 12/17/2015 Overview (04/05/2020): [employer] Dual Pacemaker Dx; SSS, Afib, Destinee-Parkinsons White. Gen change 04/04/2020-Uppstrom, chronic leads 05/28/2007. Latitude remote, office checks Q1 year. Assessment & Plan (12/21/2016 4:43 PM CDT): Pacer checks show APCs, PVCs and some PAF 1-2% of the time. Nonrheumatic aortic valve insufficiency 12/17/19 16 Overview (06/19/2016): Nonrheumatic aortic (valve) insufficiency Non-rheumatic mitral regurgitation 12/17/2015 Overview (06/19/2016): Nonrheumatic mitral valve regurgitation Sick sinus syndrome 09/19/2013 Overview (06/19/2016): SSS (sick sinus syndrome) Sfjtd-Jzldreshw-Hcoge (WPW) pattern 05/24/2012 Overview (06/20/2016): Xlibe-Abfdzjbel-Binwc (WPW) syndrome Assessment & Plan (12/21/2016 4:47 [...] Hypertension 05/24/2012 12/31/2017 Overview (06/20/2016): HYPERTENSION NOS Encounters Date Type Department Care Team Description 08/19/2024 Results Follow-Up [facility] Cardiology [address] [place] [address] [place] [phone] Cornelia Tuttle MD Transthoracic Echo (TTE) Complete W Doppler/CF 08/17/2024 1:00 PM CDT Ancillary Procedure [place] [address] [place] [phone] Nonrheumatic aortic valve insufficiency 07/13/2024 3:15 PM CDT Office Visit [address] [place] [phone] Maru Singh NP Pacemaker (Primary Dx); Paroxysmal atrial fibrillation (HCC); Sick sinus syndrome (HCC) 07/13/2024 2:45 PM CDT Ancillary Procedure [address] [place] [phone] Sick sinus syndrome (HCC) (Primary Dx); Pacemaker; Gyevp-Tblpkdwzi-Xeo te (WPW) pattern; Paroxysmal atrial fibrillation (HCC); Fitting or adjustment of cardiac pacemaker 07/13/2024 Results Follow-Up [address] [place] [phone] Maru Singh NP ECG 12 lead 07/06/2024 11:30 AM CDT Office Visit [facility] Cardiology [address] [place] [address] [place] [phone] Cornelia Tuttle MD Paroxysmal atrial fibrillation (HCC) (Primary Dx); Pacemaker; Nonrheumatic aortic valve insufficiency; Primary hypertension; Mixed hyperlipidemia; Severe obesity (HCC) 07/06/2024 11:00 AM CDT Ancillary Procedure [facility] Cardiology [address] [place] [phone] Sick sinus syndrome (HCC); Paroxysmal atrial fibrillation (HCC); Pacemaker 07/06/2024 Orders Only [facility] [address] [facility] [address], [place] [address] Cornelia Tuttle MD Pacemaker (Primary Dx); Paroxysmal atrial fibrillation (HCC); Sick sinus syndrome (HCC) 06/15/2024 8:45 AM CDT - 06/15/2024 12:15 PM CDT Surgery [facility] [address] [place] [address] David Keith MD ABLATION ATRIAL FIBRILLATION (A-FIB) VIA PULMONARY VEIN ISOLATION [id number] 06/15/2024 8:43 AM CDT Anesthesia Event [facility] [address] [place] [address] Enoch May MD Dippolito, Jenny Irene, NP 06/15/2024 5:40 AM CDT - 06/15/2024 2:48 PM CDT Hospital Encounter [facility] [address] [place] [address] David Keith MD Longstanding persistent atrial fibrillation (HCC) [I48.11] (Primary Dx); Paroxysmal atrial fibrillation (HCC) Discharge Disposition: Discharge to home or self care 06/14/2024 11:00 AM CDT Pre-Admission Testing [facility] [address] [place] [phone] Preoperative testing (Primary Dx); Paroxysmal atrial fibrillation (HCC) 06/14/2024 9:24 AM CDT - 06/14/2024 11:59 PM CDT Hospital Encounter [facility] [address] [place] [address] David Keith MD Paroxysmal atrial fibrillation (HCC) Discharge Disposition: Discharge to home or self care from Last 3 Months Surgical History Surgery Date Site/Laterality Comments OTHER SURGICAL HISTORY Perianal cyst excised CARDIAC ELECTROPHYSIOLOGY PROCEDURE 06/15/2024 Bilateral Procedure: ABLATION ATRIAL FIBRILLATION (A-FIB) VIA PULMONARY VEIN ISOLATION 26832; Surgeon: David Keith MD; Location: [facility]; Service: Cardiovascular; Laterality: Bilateral; AF ABLATION ENSITE/PFA GA NPO after 2400 on June 14, 2024. Continue Xarelto uninterrupted wtih No medications morning of the procedure. First case arrival time of 0600 am on June 15, 2024, plan on overnig Medical devices from this surgery are in the Medical Devices section. CARDIAC ELECTROPHYSIOLOGY PROCEDURE 06/15/2024 N/A Procedure: ABLATION ATRIAL FIBRILLATION ADDITIONAL LINE OR FOCI (+) 95048; Surgeon: David Keith MD; Location: [facility] EP [facility]; Service: Cardiovascular; Laterality: N/A; Medical devices from this surgery are in the Medical Devices section. JOINT REPLACEMENT 02/18/23 Medical History Medical History Date Comments Adiposity Obesity Palpitations PVC's (premature ventricular contractions) Hypertension Atrial fibrillation (HCC) Sleep apnea Family History Medical History Relation Name Comments Alzheimer's disease Father Christiano Sun Sr Other Mother Valve Replaceme nt; Other Sister 2 WPW; Anesthesia problems Neg Hx Malig Hypertension Neg Hx Malig Hyperthermia Neg Hx Pseudochol deficiency Neg Hx Relation Name Status Comments Father Christiano Sun Sr Alive Mother Alive Sister 1 Alive Sister 2 Social History Tobacco Use Types Packs/Day Years [...] on file Legal Sex Male 7:35 PM CHURCH SECRETARY Gender Identity Male 06/30/2018 8:46 AM CDT Sexual Orientation Straight 06/30/2018 8: 46 AM CDT Obstetrics History Last Filed Vital Signs Vital Sign Reading [...] 07/13/2024 2:49 PM CDT Plan of Treatment Health Maintenance Due Date Last Done Comments Colon Cancer Screening-Colonoscopy 1960 Depression Screening 1960 Hepatitis C Screening 1960 Prostate Cancer Screening-PSA 1960 DTaP/Tdap/Td Vaccine (1 - Tdap) 11/20/1970 Hepatitis B Screening 11/20/1977 Regular Well Visit/Exam 18-64 11/20/1977 Zoster Vaccine (1 of 2) 11/20/2009 Influenza Vaccine (Season Ended) 2024 Pneumococcal vaccine <65 Aged Out No longer eligible based on patient's age to complete this topic Medical Devices Implanted Type Area Certified Medical Dosimetrist Device Identifier Shelf Expiration Date Model / Serial / Lot Pacemaker-3/06/2007 Implanted: (Quantity not on file) Pacemaker Chest [employer] SSS, Afib INSIGNIA I [id number] / [id number] / Velez Vascular System Closure Repair Femoral Artery Suture Mediated Perclose Prostyle 85863-10 - [id number] Implanted:Qty : 1 on 06/15/2024 by David Keith MD at [facility] Vascular Closure Device [employer] 03/15/2026 [id number] / / [id number] Description:perclose [employer] Vascade Mvp 6-12fr Venous Closure [id number] - [id number] Implanted:Qty : 1 on 06/15/2024 by David Keith MD at [facility] Vascular Closure Device [employer] 04/25/2026 [id number] / / [id number] Description:Vascade [employer] Vascade Mvp 6-12fr Venous Closure [id number] - [id number] Implanted:Qty : 1 on 06/15/2024 by David Keith MD at [facility] Vascular Closure Device [employer] 12/30/2025 [id number]-10 [id number] / / [id number] Description:vascade Procedures Procedure Name Priority Date/Time [...] HIGH RANGE Routine 06/15/2024 9:49 AM CDT [place] AN PROCEDURE PLACEHOLDER Routine 06/15/2024 9:34 AM CDT [place] AN ELECTIVE ENDOTRACHEAL AIRWAY Routine 06/15/2024 9:34 [...] PM CDT Narrative 08/17/2024 4:17 PM CDT [facility] [address], [place] [address] [address] [facility] [address], [place] [address] P:[phone] P:[phone] Echocardiographic Report Patient Name: CHRISTIANO SUN V : 1960 Study Date: 08/17/2024 1:01:22 PM Gender: M Tech: DLS Location: [place] Ref Provider: CORNELIA TUTTLE Height(Cm): 190 BSA: 2.63 [...] FINDINGS: Interpretation Site: Exam was interpreted at [facility]. Left Ventricle: Normal left ventricular systolic function. [...] Procedure Note Cornelia Tuttle MD - 08/17/2024 [facility] [address] [facility] [address], [place] [address] [address] [facility] [address], [place], [place] [address] P:[phone] P:[phone] Echocardiographic Report Patient Name: CHRISTIANO SUN V : 1960 Study Date: 08/17/2024 1:01:22 PM Gender: M Tech: GUADALUPE Location: [facility] Provider: CORNELIA TUTTLE Height(Cm): 190 BSA: 2.63 [...] FINDINGS: Interpretation Site: Exam was interpreted at [facility]. Left Ventricle: Normal left ventricular systolic function. 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 [employer] PPM in 2007, probably for sinus [...] PVI (Specify) Procedure [x] AF ablation procedure (07330) -- includes LA/CS pacing, transseptal, 3D mapping, + ICE [] +IV drug (73644) [] +Other Arrhythmia (30472) [] +Other AF Line/ablation(99258) Risks and expected recovery has been explained [...] The transseptal puncture was performed with a VersaCross RF transseptal system. The wire was visualized [...] RASMUSSEN in 4-6 weeks David Keith MD David Keith MD CV ELECTROPHYSIOLOGY [place] OCS Final Result * (ABNORMAL) POC Activated Clotting Time, High Range (06/15/2024 10:21 AM CDT) ACT 340(H) 87 - 138 sec POC Performer 1140 [facility] POC Device Number [id number] [facility] Blood 06/15/2024 10:2 1 AM CDT 06/15/2024 10:21 AM CDT David Keith MD LAB BLOOD ORDERABLES Fi nal Result YINA [facility] Department [place] [address] * (ABNORMAL) POC Activated Clotting Time, High Range (06/15/2024 9:49 AM CDT) ACT 302(H) 87 - 138 sec POC Performer 1140 [facility] POC Device Number [id number] [facility] Blood 06/15/2024 9:49 AM CDT 06/15/2024 9:49 AM CDT us David Keith MD LAB BLOOD ORDERABLES Fi nal Result YINA [facility] [place] [address] * [place] AN ELECTIVE ENDOTRACHEAL AIRWAY, [place]Y AN PROCEDURE PLACEHOLDER (06/15/2024 9:34 AM CDT) Narrative Muna Joel CRNA - 06/15/2024 9:34 AM CDT Muna Joel CRNA 06/15/2024 9:35 AM Airway Patient location: OR Urgency: elective Indications for airway management: anesthesia Difficult airway: no Staff: Supervising provider: Enoch May MD Placed by: COMPUTER SECURITY MANAGER: Muna Joel CRNA Emergent airway documentation: Risks [...] of attempts: 1 Planned trial extubation: yes us Enoch May MD ANESTHESIA ORDERABLES Final Result [...] MD LAB BLOOD ORDERABLES Fi nal Result [facility] [place] [address] * (ABNORMAL) Urinalysis reflex to microscopic (06/14/2024 12:14 PM CDT) Color, ur Straw Yellow Clarity, ur Clear Clear [facility] Specific gravity, ur >1.042(H) 1.003 - 1.030 [facility] pH, urine 6.5 [facility] Comment: Interpretive Data U rine pH is affected by diet, medications, systemic acid-base disturbances, and renal tubular function. pH may affect urinary stone formation. For example, urine pH below 6.0 may help reduce the tendency for calcium phosphate stones and pH greater than 6.0 may reduce the tendency for uric acid stone formation. Source: [employer] Current Interpretive Data was last revised on 2017 Protein, ur ql Trace Negative [facility] Glucose, ur ql Negative Negative [facility] Ketones, ur Negative Negative [facility] Bilirubin, ur Negative Negative [facility] Blood, ur Negative Negative [facility] Urobilinogen, ur <2.0 <2.0 mg/dL [facility] Nitrite, ur Negative Negative [facility] Leukocyte esterase, ur Negative Negative [facility] UA reflex comment Reflex conditions for microscopic UA not met. [facility] Urine 06/14/2024 12:1 4 PM CDT 06/14/2024 12:47 PM CDT us David Keith MD LAB URINE ORDERABLES Fi nal Result Performing Organization Address [facility] Co de Phone Number [facility] Department [place] [address] * CBC without differential (06/14/2024 12:14 PM CDT) [facility] WBC 7.52 3.80 - 9.90 K/cumm Hgb 15.2 13.0 - 17.5 g/dL [facility] Hct 44.6 38.9 - 50.3 % [facility] Plt 188 150 - 400 K/cumm [facility] MPV 11.1 9.1 - 12.3 fL [facility] RBC 5.13 4.30 - 5.80 M/cumm [facility] MCV 86.9 81.3 - 96.4 fL [facility] MCH 29.6 27.1 - 33.3 pg [facility] MCHC 34.1 32.3 - 35.7 g/dL [facility] RDW CV 12.4 11.1 - 14.9 % [facility] RDW SD 39.4 35.7 - 48.1 fL [facility] NRBC abs 0.00 0.00 - 0.01 K/cumm [facility] Blood 06/14/2024 12:1 4 PM CDT 06/14/2024 12:53 PM CDT us David Keith MD LAB BLOOD ORDERABLES Fi nal Result Performing Organization Address City[facility] Co de Phone Number [facility] Department [place] [address] * Basic metabolic panel (06/14/2024 12:14 PM CDT) [facility] Sodium 140 135 - 145 mmol/L Potassium, pl 4.8 3.3 - 4.9 mmol/L [facility] Chloride 104 97 - 110 mmol/L [facility] CO2 29 22 - 32 mmol/L [facility] Anion gap 7 2 - 15 mmol/L [facility] BUN 12 6 - 25 mg/dL [facility] Creatinine 1.17 0.80 - 1.30 mg/dL [facility] Glucose 112 70 - 199 mg/dL [facility] Comment: Interpretive Data Fasting glucose >/= 126 [...] 2022. Calcium 10.0 8.5 - 10.3 mg/dL [facility] Blood 06/14/2024 12:1 4 PM CDT 06/14/2024 12:53 PM CDT us David Keith MD LAB BLOOD ORDERABLES Fi nal Result [facility] Department [place] [address] * ECG 12 lead (06/14/2024 11:23 AM CDT) [facility] Ventricular Rate EKG/Min 63 BPM [facility] Atrial Rate 63 BPM [facility] WY-Interval (MSEC) 182 ms [facility] QRS-Interval (MSEC) 82 ms [facility] QT-Interval (MSEC) 436 ms [facility] QTc 446 ms [facility] P Stewart 59 degrees [facility] R Stewart 24 degrees [facility] T Stewart 41 degrees [facility] Diagnosis Atrial-paced rhythm with occasional Premature ventricular complexes Abnormal ECG Confirmed by Shivani Haile MD ([id number]) on 06/15/2024 11:54:39 AM [facility] 06/14/2024 11:2 3 AM CDT 06/15/2024 11:54 AM CDT us Angeles Camacho APPEALS RN ECG ORDERABLES Final R esult [facility] * CT Heart Morphology W Contrast (06/14/2024 [...] POCT ORDERABLES - D EVICE Final Result [facility] Department [place] [address] from Last 3 Months [facility] O Advance Directives For more information, please contact: [phone] * Full Code (Latest Code Status on File) Date Activated Date Inactivated Comments 03/30/2024 6:52 PM 04/02/2024 6:32 PM Care Teams Manager Security Relationship Specialty Start Date End Date Onel Azul MD [address] [place] [address] PCP - General 06/13/16
--- OUTSIDE RECORDS SUMMARY | 2024-08-30 02:24 | XMS_ITS | Data Portability ---
Author Organization [place] [facility] [place], Main Office Address [address] [place] [address] Care Team Providers Care Product Analyst Name Role Phone VINOD ARRIETA Primary Care Provider VINOD ARRIETA Referring Provider [phone] Assessment Encounter Date Assessment Date Assessment LastModified by Organization Details LastModified Time 12/04/2022 12/04/2022 x-rays two views of left hip and AP pelvis x-rays were obtained in the office and demonstrate marked progression of the superior joint space narrowing which is now less than 0.5 mm essentially [id number]. Impression patient has had rapid progression of osteoarthritis of his left hip which is now severe and he is severely symptomatic. MRI scan shows significant arthritic subchondral bone edema changes. The I would agree with have him remain on crutches as there is risk of destructive progression with fragmentation and collapse which can cause extra difficulties. I have discussed with him the option of hip replacement surgery and he is aware that this is the treatment for his problem. I think there is no hope that this will improve with passage of time continuing with non operative treatment. The I have discussed the direct anterior approach the total hip arthroplasty which is my preferred approach. His was present for the discussion. I explained that will be numbness around the incision. I have discussed risks of surgery with him in detail. Risk of infection was discussed I would recommend that he take antibiotics before dental work in the future. He states that his teeth are currently healthy and he is having no problems. risk of blood clots was discussed. My preference would be to use Eliquis for 5 weeks after surgery. With respect to his aspirin use I would recommend that he reduce his aspirin to a baby aspirin daily starting 7 days before surgery. I would recommend that he wait until he is off the Eliquis before increasing it again to 325 mg daily. We discussed the risk of heterotopic ossification. I would have him take low-dose Celebrex 200 mg daily for 10 days to help mitigate that risk. the risk of bleeding complications was discussed as well as risk of transfusion after surgery. I explained that we will use Cell Saver which will help reduce than that blood loss during surgery. Risk of fracture leg length discrepancy and dislocation discussed. risk of nerve injury discussed. He is only 62 and there is risk of component where and breakage necessitating revision surgery as would component loosening with failure of ingrowth. We would put him on a monitored bed after surgery and plan on outpatient surgery with overnight stay i with discharge today after surgery if he is having no medical or cardiac issues. I would like to have formal medical clearance with doctors or min and cardiac clearance with Dr. Baxter. Patient would like to proceed as soon as possible. I have provided them with the Ortho info handout on total hip arthroplasty as well as the direct anterior approach booklet and written instructions on stopping diclofenac 7 days before surgery and reducing his aspirin to a baby aspirin starting 7 days before surgery. 60 minutes were spent in total care patient half this time spent in [id number] care. [email or web address] Not available 12/04/2022 20:26:34 03/04/2023 03/04/2023 HPI: Patient returns. He is 2 weeks out from left anterior total hip arthroplasty. Overall doing relatively well. He has finished up his antibiotics as well as his Celebrex. He remains on the Eliquis. He is taking Tylenol regularly in the oxycodone intermittently. Physical exam: Patient is on his walker. We having him use is for the 1st month. He has bones with a soft time surgery. Incision is well healed. Mild swelling in the proximal thigh. No swelling in either lower extremity. Impression: Patient is doing well 2 weeks out left anterior total arthroplasty. We will order bone density on him due to the softness of his bones at the time surgery. He will continue with the Eliquis for 5 week course. He will remain on the walker to we see him back in 2 weeks. We will get x-rays at that time. We should be able to transition him to cane at that point. Not available 03/04/2023 12:24:45 03/20/2023 03/20/2023 HPI: Patient returns. Is 1 month out left anterior total hip arthroplasty. Overall he is doing well. He is having little bit of soreness at times depending on activities. Overall is mild and very tolerable. He has weaned off the walker is using a cane at this point. Physical exam: Patient is walking well with his cane today. He has no limp. He is walking very naturally. He has no increased swelling in either lower extremity. Impression: Patient doing well 1 month out left anterior total hip arthroplasty. He will finish up his 5 week course of Eliquis and go back to his full strength baby aspirin after that. He can increase activities as tolerated. We will see him back in a month for re-evaluation. Not available 03/20/2023 11:09:50 04/17/2023 04/17/2023 HPI: Patient returns. He is 2 months out from his left anterior total hip arthroplasty. He is doing great. He is having no symptoms or problems with the hip. He has been back to all daily activities without any problems physical exam: Patient is walking very well today. He has no limp. He is walking very normally with a normal gait. Impression: Patient doing very well 2 months out left anterior total hip arthroplasty. He will continue to increase activities as tolerated. Long-term risk of infection was discussed. We will see him back at his 1 year anniversary or sooner if he has problems Not available 04/17/2023 11:54:35 Plan of Treatment Reminders Order Date Submit Date Provider Last Modified By Organization Details Last Modified Time Details Appointments None recorded. Lab None recorded. Referral None recorded. Procedures None recorded. Surgeries None recorded. Imaging XR, hip + pelvis, unilateral 2023 024 [email or web address] [facility] [place], [address], [place], [address], 4 18:35:44 XR, hip + pelvis, unilateral 2022 023 [email or web address] [facility] [place], [facility] [facility], [place], [address], 3 09:55:40 Medication Orders None recorded. Patient TargetsNo targets recorded. Patient InstructionsNo instructions recorded. Reason for Referral None Reported. Results Created Date Observation Date Name Description Value Unit Range Abnormal Flag Note LastModifiedBy Organization Detail LastModifiedTime 11/28/1908/29/2022 XR, hip, unila teral , 2 or 3 view No observ ation record ed. [email or web address] Not Available 11/14 14:26:12 11/28/19 23 11/24/2022 MRI, hip, w/o contr ast No observ ation record ed. [email or web address] Not Available 11/14 14:26:12 12/05/19 23 XR, hip + pelvi s, unila teral No observ ation record ed. [address] [place] [address] [facility], [place], [address], 12/04/2022 13:30:53 02/19/20 23 02/18/2023 XR, hip + pelvi s, unila teral No observ ation record ed. [address], [place], [address], 02/18/2023 13:06:34 02/19/20 23 02/18/2023 XR, hip + pelvi s, unila teral No observ ation record ed. [address], [place], [address], 02/18/2023 13:09:53 03/20/19 24 XR, hip + pelvi s, unila teral No observ ation record ed. [facility] [place] [address], [place], [address], 03/20/2023 11:08:57 03/23/19 24 DEXA, axial skele ton [facility] [address] [facility], [place] [address] Patien t Name: CHRISTIANO DAVENPORT [facility] ion #: [id number] Sex: M : 1960 8 5 Dictat ed By: Etta Mendoza Attend ing Physic sami: SAY LIANG [employer] [facility] Physic sami: SAY LIANG Exam Date: 2023 12:55 PM Exam Name: XR DEXA AXIAL/ HIP/PE LVIS/S PINE Admitt ing Diagno sis(es ): INDICA TION: Osteop orosis screen ing, post menopa usal DEXA SCAN: BONE DENSIT Y REPORT : Bone minera l densit y (BMD) AP SPINE (L1-L4 ) BMD: 1.41 (Grams /cm2). T Score: 1.7 RT FEMORA L NECK BMD: 1.05 (Grams /cm2). T Score: 0.1 LEFT HIP TOTAL BMD: 1.10 (Grams /cm2). T Score: 0.7 IMPRES KELL: 1. Normal bone minera l densit y of the lumbar spine and right hip. ------ ------ ------ ------ ------ ------ ------ ------ ----- *FRAX versio n 3.08. Fractu re probab ility calcul ated for an untrea brian patien t. Fractu re probab ility may be lower if the patien t has receiv ed treatm ent. T-scor e: compar virgil by shelby ortega deviat ion (SD) to a young adult popula tion, matche d for sex and ethnic ity (used for postme nopaus al women and men >50 years) and classi fied by WHO criter ia. ?-1.0: normal <-1.0 to >-2.5: osteop enia ?-2.5: osteop orosis ?-2.5 plus fragil ity fractu re: severe osteop orosis Z-scor e: compar ed by SD to an age, sex, and ethnic ity popula tion (used for premen opausa l women, men <50 years, and childr en instea d of T-scor e WHO criter ia 4) Page 1 [facility] [address] [place] [address] Patien t Name: CHRISTIANO DAVENPORT Access ion #: [id number] Sex: M : 1960 8 5 Dictat ed By: Etta Mendoza Attend ing Physic sami: SENIA SALVADOR [employer] [facility] Physic sami: SAY LIANG Exam Date: 2023 12:55 PM Exam Name: XR DEXA AXIAL/ HIP/PE LVIS/S PINE Admitt ing Diagno sis(es ): <-2.0: below expect ed range/ low bone densit y for age, and a cause should be sought Electr onical ly Signed by: Etta Mendoza at 2023 14:45: 08 PM Page [address] [facility] (Imaging) [address] [place] [address], [address], 03/24/2023 10:02:51 Result Notes Documentation Provider Name and Address Organization Details Recorded Time Dexa, Axial Skeleton : [address] [address] Patient Name: CHRISTIANO SUN Sex: M : 1960 Dictated By: Etta Mendoza Attending Physician: SAY CISNEROS Ordering Physician: SAY CISNEROS Exam Date: 03/23/2023 12:55 PM Exam Name: XR DEXA AXIAL/HIP/PELVIS/SPINE Admitting Diagnosis(es): INDICATION: Osteoporosis screening, post menopausal DEXA SCAN: BONE DENSITY REPORT: Bone mineral density (BMD) AP SPINE (L1-L4) BMD: 1.41 (Grams/cm2). T Score: 1.7 RT FEMORAL NECK BMD: 1.05 (Grams/cm2). T Score: 0.1 LEFT HIP TOTAL BMD: 1.10 (Grams/cm2). T Score: 0.7 IMPRESSION: 1. Normal bone mineral density of the lumbar spine and right hip. --- *FRAX version 3.08. Fracture probability calculated for an untreated patient. Fracture probability may be lower if the patient has received treatment. T-score: comparison by standard deviation (SD) to a young adult population, matched for sex and ethnicity (used for postmenopausal women and men >50 years) and classified by WHO criteria. ?-1.0: normal <-1.0 to >-2.5: osteopenia ?-2.5: osteoporosis ?-2.5 plus fragility fracture: severe osteoporosis Z-score: compared by SD to an age, sex, and ethnicity population (used for premenopausal women, men <50 years, and children instead of T-score WHO criteria 4) Page [address] [address] Patient Name: CHRISTIANO SUN Sex: M : 1960 Dictated By: Etta Mendoza Attending Physician: AMELIA SALVADOR Ordering Physician: SAY CISNEROS Exam Date: 03/23/2023 12:55 PM Exam Name: XR DEXA AXIAL/HIP/PELVIS/SPINE Admitting Diagnosis(es): <-2.0: below expected range/low bone density for age, and a cause should be sought Page 2 WINSTON Melgar [employer] 03/24/2023 10:02:51 Problems Name Problem SNOMED Code Status Onset Date Resolution Date Notes Provider Name and Address Organization Details Recorded Time Pain of left hip joint 2256671005990 00 Active 2022 WINSTON Melgar [employer] 3 12:32:37 Vitamin D deficiency 89597201 Active 2022 IAN Gee, [employer] [employer] [facility] 3 12:02:00 Osteoporosi s 21439461 Active 2022 IAN Gee, [employer] [facility] [employer] [facility] 3 12:17:01 Problem Notes None recorded. Procedures Surgical History Date Name Laterality Status Provider Name and Address Organization Details Recorded Time Pacemaker completed WINSTON Melgar [facility] [employer] [facility] [employer] 12/04/2022 12:32:04 Imaging Results None recorded. Procedure Notes None recorded. Medical Equipment None Reported. Allergies Allergen ID Allergen Name Allergen Category Reaction Reaction Severity Criticality Documentation Date Start Date Code Code System Note Provider Name and Address Organization Details Recorded Time 84833 propafeno ne medicatio n Not available Not available Not available 12/04/2022 8754 RxNorm WINSTON Melgar fritz [facility] [employer] [facility] 3 12:30:34 Medications Name Sig Start Date Stop Date Status Note LastModified by Organization Details LastModified Time blood pressu solution kit active Not Available Not Available Not Available celecoxib 200 mg capsule TAKE 1 CAPSULE BY MOUTH DAILY 03/20 completed Not Available Not Available Not Available trazodone 50 mg tablet TAKE 1 TABLET BY MOUTH EVERY DAY AT BEDTIME 03/04 completed Not Available Not Available Not Available aspirin 325 mg tablet Take 1 tablet every day by oral route. active Not Available Not Available No t Available metoprolol succinate ER 50 mg tablet,exten ded release 24 hr active Not Available Not Available Not Available amlodipine 5 mg tablet 12/04 completed Not Available Not Available Not Available acetaminophe n 500 mg tablet TAKE 2 TABLETS BY MOUTH EVERY 6 HOURS NEEDED FOR PAIN 04/17 completed Not Available Not Available Not Available tamsulosin 0.4 mg capsule TAKE 1 CAPSULE BY MOUTH EVERY MORNING 03/20 completed Not Available Not Available Not Available simvastatin 20 mg tablet TAKE 1 TABLET BY MOUTH DAILY active Not Available Not Available No t Available prednisone 50 mg tablet TAKE 1 TABLET BY MOUTH DAILY FOR 5 DAYS 12/04 completed Not Available Not Available Not Available flecainide 50 mg tablet active Not Available Not Available Not Available flecainide 100 mg tablet active Not Available Not Available Not Available aspirin 81 mg chewable tablet CHEW AND SWALLOW 1 TABLET BY MOUTH DAILY AT 8 AM 04/17 completed Not Available Not Available Not Available diclofenac sodium 75 mg tablet,delay ed release TAKE 1 TABLET BY MOUTH TWICE DAILY NEEDED FOR PAIN 03/20 completed Not Available Not Available Not Available ergocalcifer ol (vitamin D2) 1,250 mcg (50,000 unit) capsule TAKE 1 CAPSULE BY MOUTH 2 TIMES WEEKLY FOR 4 WEEKS 04/17 completed Not Available Not Available Not Available cefdinir 300 mg capsule TAKE 1 CAPSULE BY MOUTH EVERY 12 HOURS 03/20 completed Not Available Not Available Not Available oxycodone 5 mg tablet TAKE 1 TABLET BY MOUTH EVERY 4 HOURS active Not Available Not Available No t Available valsartan 160 mg tablet active Not Available Not Available Not Available Eliquis 2.5 mg tablet TAKE 1 TABLET BY MOUTH EVERY 12 HOURS 04/17 completed Not Available Not Available Not Available Stimulant Laxative Plus 8.6 mg-50 mg tablet TAKE 2 TABLETS BY MOUTH TWICE DAILY 03/20 completed Not Available Not Available Not Available Vitals Date Recorded Body height Provider Name an d Address Organization Details Last Updated DateTime 03/20/2023 190.5 cm Christelle Cox [facility] [employer] [facility] 03/20/2023 10:21:46 Date Recorded Body height Provider Name an d Address Organization Details Last Updated DateTime 04/17/2023 190.5 cm Christelle Cox [facility] [employer] [facility] 04/17/2023 11:07:22 Date Recorded Body height Body mass index (BMI) Body weight Provider Name and Address Organization Details Last Updated DateTime 12/04/2022 190.5 cm 34.5 kg/m2 545775.49 g Ashanti Del Rio [facility] [employer] [facility] 12/04/2022 13:04:08 Date Recorded Body height Provider Name an d Address Organization Details Last Updated DateTime 03/04/2023 190.5 cm Christelle Cox [facility] [employer] [facility] 03/04/2023 11:04:45 Social History None recorded. Functional Status Question Answer Note LastModified by Organization D etails LastModified Time What is your level of alcohol consumption? None [email or web address] Information not available 12/04/2022 Mental Status None recorded. Family History Nothing Reported. Medical History No medical history recorded. Past Encounters Encounter ID Performer Location Encounter Start Date Encounter Closed Date Diagnosis/Indication Diagnosis SNOMED-CT Code Diagnosis ICD10 Code Diagnosis Note [id number] Say Cisneros MD [facility] [place] [address] [place] [address] 12/04/2022 12:02:54 12/05/2022 09:55:39 Pain of left hip joint 3749278368 80675 M25.830 [id number] Say Cisneros MD [facility] [place] [address] [place], [place] [address] 03/04/2023 10:59:32 03/04/2023 12:39:57 History of total replacement of left hip joint 0740922564 671374 Z96.654 [id number] Say Cisneros MD [facility] [place] [address] [place] [address] 03/20/2023 10:18:30 03/20/2023 11:21:14 History of total replacement of left hip joint 6932130387 931823 Z96.792 [id number] Say Cisneros [facility] [place] [address] [place] [address] 04/17/2023 11:04:04 04/17/2023 12:00:12 History of total replacement of left hip joint 6622745263 895786 Z96.642 Health Concerns Section Related Observation LastModified by Organization Detai ls LastModified Time None Recorded Concern Status LastModified by Organization Details LastModified Time None Recorded Advance Directives Directive None Recorded Payers Insurance Date Sequence Insurance Name Policy Number Policy Snow Covered Member ID Snow Member ID Guarantor Name 04/27/2023 1 [employer] (POS) [id number] Christiano Sun [id number] Christiano Sun Notes Date Note Type Note Provider Name and Address Organization Details Recorded Time 12/04/2022 text/html patient is a 62-year-old gentleman who is referred by Dr. Mccarthy who was a patient of Dr. Franco. Is here for evaluation of his severe left hip pain. The has noticed some problems with his left hip for about the last 2 years initially noting less range of motion his hip. In the early spring he started having medial left groin pain. This was not constant pain but occasional sharp pains in the medial groin and anterior groin particularly with certain movements or positions. He had x-rays done and August which showed approximately 2.5 mm of superior joint space remaining indicating moderate to moderately severe joint space narrowing. Very mild hypertrophic changes. The he went through physical therapy in July remotely and he felt that his range of motion was improving. Demetri all his symptoms were mild except for the occasional sharp pains and then in October he developed severe pain. He was started on diclofenac in August and continues on diclofenac and takes Tylenol off and on. intermittently he was having a difficult time bearing weight. It times it would seem that something was caught her stuck with his hip and it would take some time before he could move it again would he would feel a pop sometimes. He had an MRI scan on 11/24/2022 which showed rather severe superior joint space narrowing and significant edema in the superior aspect of the femoral head with patchy edema extending into femoral neck indicative of severe active degenerative arthropathy. A he was advised to go on crutches and referred for possible hip replacement. Patient has a pacemaker. He had. It is of asystole 15 years ago this was the reason the pacemaker was placed. It was recently replaced by Dr. Baxter in March of 2021. He saw Dr. Baxter just recently and discussed that he would need hip replacement surgery and he indicates that she felt he would be cleared to proceed. He also has occasional atrial fibrillation. This is less than 1% of the time so he is managed currently on a full-strength aspirin daily for the anticoagulation. His other medications include all salt and metoprolol simvastatin multi vitamin and trazodone as needed. Say Cisneros MD [address] [place] [address], [facility] [address], [place], [address], [place] [facility] [employer] [facility] 12/04/2022 20:26:45
[2024-08-30 12:17] VITALS: BP 131/71; PULSE 62; RESP 18; TEMP 36.4; O2SAT 100
[2024-08-30] MEDS: LACTATED RINGERS 1,000 ML 150 ML IV CONT (12:25)
--- NOTE | 2024-08-30 12:50 | P.PNAN_ITS ---
Anes - Initial Pre Proc Eval Procedure: Operation Date: 08/30/24 13:30 Proposed Procedures p Colonoscopy - Pelon Melvin MD Date/Time: 08/30/24 12:50 Surgeon: Pelon Melvin MD Pre Op Diagnosis: Hemorrhage of anus and rectum, Chronic idiopathic Patient Data Age: 63 Gender: M Height: 1.91 m Weight: 131.1 kg Last Vital Signs Temp 36.4 C 08/30/24 12:17 Pulse 62 08/30/24 12:17 Resp 18 08/30/24 12:17 BP 131/71 08/30/24 12:17 Pulse Ox 100 08/30/24 12:17 O2 Del Method Room Air 08/30/24 12:17 Allergies Allergy/AdvReac Type Severity Reaction Status Date / Time propafenone Allergy Severe HIVES/throat Verified 08/30/24 12:13 swelling Home Medications ?Medication ?Instructions ?Recorded ?Confirmed ?Type magnesium 250 mg tablet 250 mg PO DAILY 04/03/20 08/25/24 History metoprolol succinate 100 mg 100 mg PO DAILY 04/03/20 08/25/24 History tablet,extended release 24 hr multivitamin 1 tablet PO DAILY 04/03/20 08/30/24 History valsartan 160 mg tablet 160 mg PO DAILY 08/20/21 08/30/24 History calcium 315 mg (as 1 tablet PO DAILY #90 tabs 02/19/23 08/30/24 Rx citrate)-vitamin D3 5 mcg (200 unit) tablet (Calcium Citrate + D) rivaroxaban 20 mg tablet (Xarelto) 20 mg PO DAILY 02/01/24 08/30/24 History simvastatin 20 mg tablet 20 mg PO DAILY #90 tabs 05/06/24 08/30/24 Rx amlodipine 2.5 mg tablet 2.5 mg PO DAILY 05/09/24 08/25/24 History amlodipine 2.5 mg tablet (Norvasc) 2.5 mg PO DAILY 05/09/24 08/25/24 History dofetilide 500 mcg capsule 500 mcg PO BID 05/09/24 08/25/24 History dofetilide 500 mcg capsule 500 mcg PO BID 05/09/24 08/30/24 History sildenafil 100 mg tablet (Viagra) 100 mg PO DAILY PRN sexual 07/26/24 08/25/24 Rx activity #100 tabs acyclovir 400 mg tablet 400 mg PO DAILY PRN cold sores 08/25/24 08/25/24 History amlodipine 5 mg tablet 5 mg PO DAILY 08/25/24 08/30/24 History diclofenac sodium 75 mg 75 mg PO DAILY PRN pain 08/25/24 08/25/24 History tablet,delayed release magnesium TAURATE 1 cap .Route DAILY 08/25/24 08/30/24 History metoprolol succinate 50 mg 50 mg PO DAILY 08/25/24 08/30/24 History tablet,extended release 24 hr Patient hx anesthesia problems: none Family hx anesthesia problems: none Results Review: All pre-operative results and documents have been reviewed as part of the pre- operative evaluation. [facility] Past Medical History Medical History Pacemaker Biotronik pacemaker placed in 2007 for sick sinus syndrome. 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 Smoking status: Never smoker Second hand tobacco smoke exposure: Yes (parents smoked) Alcohol intake: current Drinks per week: 2 Substance use: never Substance use type: does not use Do You Feel Safe in your Home?: Yes Lack of Transportation: No Lack of Food: Never True Current Housing: I Have Housing Concerned About Future Housing: No Difficulty Paying Gas/Electric Bills: No Difficulty Paying for Meds: No Currently Unemployed: No Education: Master's Degree or Higher Difficulty w/ Childcare or Family Care: No Living arrangements: with family Occupation/Education: retired Gender identity (if verbalized by the patient): Male Sexual Orientation (if Verbalized by the Patient): Straight or Heterosexual Spiritual care concerns: No Agree to blood products: Yes Anes - Eval Final PreProcedure Day of Procedure 08/30/24 12:50 Patient weight: obese Heart: regular rate and rhythm Lungs: clear to auscultation Airway: Mallampati scale class II Neurological: alert and oriented Last oral intake: >/= 8 hours ASA classification: III Emergent: no Anesthetic plan: proceed Anesthesia type and monitoring: general GIVS and standard monitoring Results Review: All pre-operative results and documents have been reviewed as part of the pre- operative evaluation. Informed Consent: The patient's anesthetic plan and its attendant risks and benefits were discussed with the patient/family/POA. Questions were solicited and answers provided to the satisfaction of the patient/family/POA.
--- NOTE | 2024-08-30 13:20 | PM.HPGS ---
History of Present Illness History of Present Illness Consent: Risks, benefits, and alternatives have been discussed and questions answered. Patient agrees to proceed with procedure. Chief complaint: Hemorrhage of anus and rectum, Chronic idiopathic Narrative: Escobar Vasquez Jr. is a 63 year old male with polyp in 2019, had loose stools for few months but that has improved. Review of Systems Review of Systems: All systems reviewed & are unremarkable except as noted in HPI and below PMFSH Past Medical History Medical History Pacemaker Biotronik pacemaker placed in 2007 for sick sinus syndrome. 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 Smoking status: Never smoker Second hand tobacco smoke exposure: Yes (parents smoked) Alcohol intake: current Drinks per week: 2 Substance use: never Substance use type: does not use Do You Feel Safe in your Home?: Yes Lack of Transportation: No Lack of Food: Never True Current Housing: I Have Housing Concerned About Future Housing: No Difficulty Paying Gas/Electric Bills: No Difficulty Paying for Meds: No Currently Unemployed: No Education: Master's Degree or Higher Difficulty w/ Childcare or Family Care: No Living arrangements: with family Occupation/Education: retired Gender identity (if verbalized by the patient): Male Sexual Orientation (if Verbalized by the Patient): Straight or Heterosexual Spiritual care concerns: No Agree to blood products: Yes Meds Home Medications and Allergies Home Medications ?Medication ?Instructions ?Recorded ?Confirmed ?Type magnesium 250 mg tablet 250 mg PO DAILY 04/03/20 08/25/24 History metoprolol succinate 100 mg 100 mg PO DAILY 04/03/20 08/25/24 History tablet,extended release 24 hr multivitamin 1 tablet PO DAILY 04/03/20 08/30/24 History valsartan 160 mg tablet 160 mg PO DAILY 08/20/21 08/30/24 History calcium 315 mg (as 1 tablet PO DAILY #90 tabs 02/19/23 08/30/24 Rx citrate)-vitamin D3 5 mcg (200 unit) tablet (Calcium Citrate + D) rivaroxaban 20 mg tablet (Xarelto) 20 mg PO DAILY 02/01/24 08/30/24 History simvastatin 20 mg tablet 20 mg PO DAILY #90 tabs 05/06/24 08/30/24 Rx amlodipine 2.5 mg tablet 2.5 mg PO DAILY 05/09/24 08/25/24 History amlodipine 2.5 mg tablet (Norvasc) 2.5 mg PO DAILY 05/09/24 08/25/24 History dofetilide 500 mcg capsule 500 mcg PO BID 05/09/24 08/25/24 History dofetilide 500 mcg capsule 500 mcg PO BID 05/09/24 08/30/24 History sildenafil 100 mg tablet (Viagra) 100 mg PO DAILY PRN sexual 07/26/24 08/25/24 Rx activity #100 tabs acyclovir 400 mg tablet 400 mg PO DAILY PRN cold sores 08/25/24 08/25/24 History amlodipine 5 mg tablet 5 mg PO DAILY 08/25/24 08/30/24 History diclofenac sodium 75 mg 75 mg PO DAILY PRN pain 08/25/24 08/25/24 History tablet,delayed release magnesium TAURATE 1 cap .Route DAILY 08/25/24 08/30/24 History metoprolol succinate 50 mg 50 mg PO DAILY 08/25/24 08/30/24 History tablet,extended release 24 hr Allergies Allergy/AdvReac Type Severity Reaction Status Date / Time propafenone Allergy Severe HIVES/throat Verified 08/30/24 12:13 swelling Vital Signs Vital Signs - 24 hr 08/30/24 12:17 Temperature 97.6 F Pulse Rate 62 Respiratory Rate 18 Blood Pressure 131/71 Pulse Oximetry 100 Oxygen Delivery Room Air Exam Const: General: comfortable and no acute distress HENMT: Face/Nose/Sinus: Normal nares present Eyes: General: appearance normal, both eyes and all related structures Neck: Neck: no JVD Resp: Auscultation: clear to auscultation bilaterally Cardio: Rate: regular rate Rhythm: regular rhythm GI: Inspection: non-distended GI Palp: Yes Soft to palpation Skin: General skin exam: normal color Neuro: General: gait normal Speech: normal speech Extrem: General: normal to inspection Psych: Mental Status: mental status grossly normal Assessment and Plan Assessment and plan (1) Colon polyps: Qualifiers: Colon polyp type: adenomatous Colon location: unspecified part of colon Qualified Code(s): D12.6 - Benign neoplasm of colon, unspecified Code(s): K63.5 - Polyp of colon Status: Acute Assessment and Plan: colonoscopy (2) Change in bowel habits: Code(s): R19.4 - Change in bowel habit Status: Acute
--- NOTE | 2024-08-30 13:28 | S_PTH ---
PATIENT: Escobar Vasquez Jr. LOC: [facility]#:[id number] AGE/SX: 63/M ROOM: RE08/30/[address]: Pelon Melvin MD : 1960 BED: DIS: 08/30/2024 SPEC #: [id number] RECD: 08/30/24 14:04 STATUS: MAINOR [place] #: [id number] CURTIS: 08/30/24 13:[address]: Pelon Melvin DEPT: [facility] Surgical RECD BY: Malou Moy ENTERED: 08/30/24 14:05 SP TYPE: Surgical OTHR DR: Onel Azul MD Tissues: A - Colon Polypectomy B - Colon Polypectomy Procedures: Hematoxylin and Eosin Stain Gross and Microscopic Level 4
[2024-08-30 13:33] VITALS: BP 115/66; PULSE 70; RESP 19; O2SAT 94
[2024-08-30 13:43] VITALS: BP 129/66; PULSE 65; RESP 16; O2SAT 94
[2024-08-30 13:53] VITALS: BP 122/67; PULSE 62; RESP 18; O2SAT 100
== END 2024-08-30 14:05 | disposition home or self-care (01) ==
PROVIDERS: PCP Family Medicine Adolescent Medicine; Referring Provider Nurse Practitioner Family; Visit Provider Internal Medicine Gastroenterology
PROC: 0DJD8ZZ Inspection of Lower Intestinal Tract, Via Natural or Artificial Opening Endoscopic (ICD-10-PCS; CPT 45378; principal; 2024-08-30 13:30)
DX: R19.4 Change in bowel habit (principal); K63.5 Polyp of colon; K64.8 Other hemorrhoids
CPT/HCPCS: 45385; 45380; 88305; J2003; J2704; J7120

== ENCOUNTER 2025-02-03 11:13 | Outpatient (CLI) | payer MEDICARE, SELFPAY ==
--- NOTE | ~2025-02-03 | XR_ITS ---
EXAMINATION: XR foot LT 2V DATE: 02/03/2025 11:33 INDICATION: Left great toe pain TECHNIQUE: Dorsoplantar and lateral views of the left foot were obtained. COMPARISON: None. FINDINGS: Bone alignment is normal. No fracture. Polyarticular osteoarthritis, mild to moderate severity at the first and second metatarsophalangeal joints and mild at multiple tarsometatarsal and interphalangeal joints. Small amount of diffuse hepatic calcification along the proximal plantar aponeurosis and distal Achilles tendon. Mild diffuse subcutaneous edema throughout the left foot. IMPRESSION: 1. 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 No acute osseous abnormality. Reviewed, dictated and finalized at location A. [employer]
== END 2025-02-03 11:14 | disposition home or self-care (01) ==
PROVIDERS: PCP Nurse Practitioner Family; Visit Provider Nurse Practitioner Family
DX: M79.675 Pain in left toe(s) (principal); I10 Essential (primary) hypertension; G62.9 Polyneuropathy, unspecified; R73.01 Impaired fasting glucose; M15.8 Other polyosteoarthritis
CPT/HCPCS: 73620